=== PATIENT | male | born 1970 | race Caucasian/White ===

== ENCOUNTER 2019-06-01 23:18 | Emergency (ER) | payer SELFPAY ==
[2019-06-01 23:27] VITALS: BP 165/111; PULSE 116; RESP 17; TEMP 36.7; O2SAT 97; BMI 24.4
--- NOTE | 2019-06-02 00:46 | W.ED.MALEGU ---
HPI - Male Genitourinary General: Chief complaint: Urogenital-Male Stated complaint: can't urinate Time Seen by Provider: 06/02/19 00:46 History of Present Illness: HPI Narrative: Patient is a 48-year-old male who comes into the ED with decreased ability to urinate. Patient states that the symptoms have been going on for the past 6 months. He says they have just progressed and gotten worse. He sometimes feels like his bladder is full when he is able to urinate a little bit out at a time. Sometimes at night while he is asleep he urinates. He has had some episodes of visible blood in his urine but not within the past 2 weeks. He does not have any flank pain. Currently here in the ED does not have any bladder discomfort. Patient is also complaining of having a cough, nasal drainage and congestion, sore throat and fever and chills that started about 1 to 2 weeks ago. Associated symptoms: Reports hematuria (in the past but not in within the last 2 weeks) and urinary incontinence; Deny dysuria, nausea or vomiting Review of Systems Const: Reports: fever and chills; Denies: fatigue Eyes: Denies: change in vision or eye discomfort ENMT: Reports: throat pain, nasal discharge and nasal congestion; Denies: painful swallowing Card: Denies: chest pain, palpitations, edema, swelling of feet/ankles, shortness of breath on exertion or shortness of breath when lying down Resp: Reports: non-productive cough; Denies: shortness of breath or productive cough GI: Denies: abdominal pain, nausea, vomiting, diarrhea, constipation or blood in stool : Reports: difficulty urinating (urinates a little bit at a time), nighttime urination, decreased urine ouput, urinary incontinence and blood in urine (in the past but not in within the last 2 weeks); Denies: flank pain or painful urination Musc: Denies: neck pain, back pain or extremity swelling Skin/Breast: Denies: rash or new lesion Neuro: Denies: headache, numbness in extremities or weakness in extremities PFS ED PFSH: Social History Smoking and tobacco status: never smoked Physical Exam Const: COMMON NORMALS: oriented x3 HENMT: COMMON NORMALS: normocephalic HEAD & SCALP: normocephalic MOUTH: oral and palatal mucosa normal THROAT: posterior oropharynx normal and uvula midline Neck/C-Spine: COMMON NORMALS: supple GENERAL: Yes normal visual inspection Resp: COMMON NORMALS: normal respiratory effort, no retractions, no use of accessory muscles and clear to auscultation bilaterally AUSCULTATION: clear to auscultation bilaterally Cardio: COMMON NORMALS: regular rate, regular rhythm, S1 normal heart sound, S2 normal heart sound, no gallops, no clicks, no murmurs and peripheral pulses 2+ throughout RATE: regular rate RHYTHM: regular rhythm HEART SOUNDS: S1 normal and S2 normal PERIPHERAL PULSES: pulses 2+ throughout GI: COMMON NORMALS: normal to inspection, nondistended, normoactive bowel sounds, soft to palpation, non-tender and no masses PALPATION: Yes soft : COMMON NORMALS: Yes no CVA tenderness BLADDER/KIDNEY EXAM: Yes no CVA tenderness Back/Pelvis: COMMON NORMALS: no CVA tenderness Extremity: COMMON NORMALS: normal to inspection Neuro: COMMON NORMALS: oriented x3 and moves all extremities Skin: COMMON NORMALS: no rashes or lesions noted GENERAL SKIN EXAM: no rashes or lesions noted and dry skin Course ED course: Patient only had 35 cc in his bladder when we performed a bladder scan. Patient was able to urinate to give us a sample. After getting fluids and Zofran patient has not had any episodes of nausea or vomiting. I explained to the patient that I am putting in a urology referral. Urology office should be calling patient to set up an appointment to discuss the past 6 months of urological issues. Patient was also given azithromycin to help with his upper respiratory symptoms in particular the bronchitis. I also gave patient prescription of Zofran to take as needed for any nausea or vomiting. Patient agree with and understood plan. Vital Signs: Vital signs: Vital Signs Temperature 98.1 F 06/01/19 23:27 Pulse Rate 107 H 06/02/19 03:55 Respiratory Rate 18 06/02/19 03:55 Blood Pressure 132/77 06/02/19 03:55 Pulse Oximetry 99 06/02/19 03:55 MDM - Male Lab Data: Attestation: I reviewed the patient's lab results. Labs: Lab Results 06/02/19 06/02/19 06/02/19 Range/Units 01:15 01:15 02:15 WBC 9.4 (4.0-10.0) 10^3/ uL RBC 4.56 (4.1-5.3) 10^6/u L Hgb 15.0 (11.7-16.6) g/dL Hct 45.2 (42.0-52.0) % MCV 99.1 H (80-94) fL MCH 32.9 (28.0-34.0) pg MCHC 33.2 (30.0-36.0) g/dL RDW 12.7 (12.1-15.1) % Plt Count 159 (130-400) 10^3/c mm MPV 10.4 (7.4-10.4) fL Neut % (Auto) 66.1 % Lymph % (Auto) 24.4 % [place] % (Auto) 8.5 % Eos % (Auto) 0.4 % Baso % (Auto) 0.4 % Neut # (Auto) 6.2 (1.8-7.7) 10^3/u L Lymph # (Auto) 2.3 (0.8-4.8) 10^3/u L [place] # (Auto) 0.8 (0.2-0.9) 10^3/u L Eos # (Auto) 0.0 (0.0-0.8) 10^3/u L Baso # (Auto) 0.0 (0.0-0.1) 10^3/u L Nucleated RBC % (a uto) 0 % Nucleated RBCs # 0.0 /100WBC Sodium 139 (136-145) mmol/L Potassium 3.9 (3.5-5.1) mmol/L Chloride 96 L (98-107) mmol/L Carbon Dioxide 21 L (22-29) mmol/L Anion Gap 25.9 H (5-19) BUN 12 (6-20) mg/dL Creatinine 0.7 (0.7-1.2) mg/dL GFR Calculation 120.9 (90-130) mL/min Glucose 74 (65-115) mg/dL Calculated Osmolal ity 283 L (285-295) mOsm/k g Calcium 9.6 (8.5-10.5) mg/dL Total Bilirubin 0.6 (0.15-1.2) mg/dL AST 108 H (0-40) U/L ALT 53 H (0-41) U/L Alkaline Phosphata se 113 (40-130) IU/L Total Protein 7.9 (6.6-8.7) g/dL Albumin 4.8 (3.5-5.2) g/dL Globulin 3.1 (1.3-4.6) g/dL Urine Color (Yellow) Urine Appearance (CLEAR) Urine pH (5-7) Ur Specific Gravit y (1.005-1.030) Urine Protein (Negative) Urine Glucose (UA) (Normal) Urine Ketones (Negative) Urine Blood (Negative) Urine Nitrate (Negative) Urine Bilirubin (NEGATIVE) Urine Urobilinogen (Negative) mg/dL Ur Leukocyte Lillian ase (Negative) Urine RBC (0-2) /hpf Urine WBC (0-5) /hpf Ur Squamous Epith Cells (0-5) Urine Bacteria (NONE) Hyaline Casts Urine Mucus Influenza Type A A g Negative (Negative) POC Influenza B Ag Negative (Negative) Group A Strep Rapi d (Negative) 06/02/19 06/02/19 Range/Units 02:15 03:18 WBC (4.0-10.0) 10^3/ uL RBC (4.1-5.3) 10^6/u L Hgb (11.7-16.6) g/dL Hct (42.0-52.0) % MCV (80-94) fL MCH (28.0-34.0) pg MCHC (30.0-36.0) g/dL RDW (12.1-15.1) % Plt Count (130-400) 10^3/c mm MPV (7.4-10.4) fL Neut % (Auto) % Lymph % (Auto) % [place] % (Auto) % Eos % (Auto) % Baso % (Auto) % Neut # (Auto) (1.8-7.7) 10^3/u L Lymph # (Auto) (0.8-4.8) 10^3/u L [place] # (Auto) (0.2-0.9) 10^3/u L Eos # (Auto) (0.0-0.8) 10^3/u L Baso # (Auto) (0.0-0.1) 10^3/u L Nucleated RBC % (a uto) % Nucleated RBCs # /100WBC Sodium (136-145) mmol/L Potassium (3.5-5.1) mmol/L Chloride (98-107) mmol/L Carbon Dioxide (22-29) mmol/L Anion Gap (5-19) BUN (6-20) mg/dL Creatinine (0.7-1.2) mg/dL GFR Calculation (90-130) mL/min Glucose (65-115) mg/dL Calculated Osmolal ity (285-295) mOsm/k g Calcium (8.5-10.5) mg/dL Total Bilirubin (0.15-1.2) mg/dL AST (0-40) U/L ALT (0-41) U/L Alkaline Phosphata se (40-130) IU/L Total Protein (6.6-8.7) g/dL Albumin (3.5-5.2) g/dL Globulin (1.3-4.6) g/dL Urine Color Dark yellow (Yellow) Urine Appearance Hazy A (CLEAR) Urine pH 5 (5-7) Ur Specific Gravit y 1.025 (1.005-1.030) Urine Protein Trace (Negative) Urine Glucose (UA) Norm (Normal) Urine Ketones 3+ H (Negative) Urine Blood Neg (Negative) Urine Nitrate Negative (Negative) Urine Bilirubin Neg (NEGATIVE) Urine Urobilinogen 1 H (Negative) mg/dL Ur Leukocyte Lillian ase Negative (Negative) Urine RBC 0-4 H (0-2) /hpf Urine WBC None (0-5) /hpf Ur Squamous Epith Cells 0-4 H (0-5) Urine Bacteria Trace (NONE) Hyaline Casts 10-15 H Urine Mucus 4+ Influenza Type A A g (Negative) POC Influenza B Ag (Negative) Group A Strep Rapi d Negative (Negative) Imaging Data: CXR: Attestation: I personally reviewed and interpreted this imaging study as follows: My impression: Possible bronchitis. Pending final radiology report. Discharge Plan Discharge Patient Disposition: Home, Self-Care Clinical Impression: Bronchitis, Dehydration Nausea & vomiting Qualifiers: Vomiting type: unspecified Vomiting Intractability: non-intractable Qualified Code(s): R11.2 - Nausea with vomiting, unspecified Condition: Stable Prescriptions: New azithromycin 250 mg tablet See Rx Instructions .ROUTE .COMPLEX Qty: 6 RF: 0 Zofran 4 mg tablet 4 mg PO DAILY Qty: 10 RF: 0 No Action Blood Pressure Med RF: 0 Discharge Orders: Discharge Order (Routine); Ordered 06/02/19 Ordered By: Patricio Kaur Discharge Diet: Regular Discharge Activity: Resume usual activity Patient Instructions: Acute Bronchitis (ED), Chronic Bronchitis (ED) Activity Restrictions/Additional Instructions: I placed a referral to the urologist. Urology office should be contacting you in the next several days to set up an appointment. Drink plenty of fluids and stay hydrated. Take full course of antibiotic as prescribed. I am also sending you home some Zofran for you to take as needed for any nausea and vomiting. Also follow-up with your PCP in 7 days. Discharge Date/Time: 06/02/19 03:56 Coding Level of Care Code ED Hand Clerical Verifier for Tirso Fwjammie Exam Comprehensive
[2019-06-02 00:51] VITALS: BP 159/89; PULSE 110; RESP 24; O2SAT 99
[2019-06-02 01:21] LABS: Basophils % 0.4 %; Eosinophils % 0.4 %; Hematocrit 45.2 % (42.0-52.0); Lymphocytes # 2.3 10^3/uL (0.8-4.8); Lymphocytes % 24.4 %; Mean Corpuscular HGB Conc 33.2 g/dL (30.0-36.0); Mean Corpuscular Hemoglobin 32.9 pg (28.0-34.0); Mean Corpuscular Volume 99.1 fL (80-94); Mean Platelet Volume 10.4 fL (7.4-10.4); Monocytes # 0.8 10^3/uL (0.2-0.9); Monocytes % 8.5 %; Neutrophils # 6.2 10^3/uL (1.8-7.7); Neutrophils % 66.1 %; Nucleated Red Blood Cells % 0 %; Platelet Count 159 10^3/cmm (130-400); Red Blood Count 4.56 10^6/uL (4.1-5.3); Red Cell Distribution Width 12.7 % (12.1-15.1); White Blood Count 9.4 10^3/uL (4.0-10.0)
[2019-06-02] MEDS: sodium chloride 0.9% 1,000 ML 999 ML IV ×2 (01:31→03:14)
[2019-06-02] MEDS: ondansetron 2 mg/ML SDV 2 mL 4 MG IVP (01:32)
[2019-06-02 01:34] LABS: Alanine Aminotransferase 53 U/L (0-41); Albumin Level 4.8 g/dL (3.5-5.2); Alkaline Phosphatase 113 IU/L (40-130); Anion Gap 25.9 (5-19); Aspartate Amino Transferase 108 U/L (0-40); Blood Urea Nitrogen 12 mg/dL (6-20); Calcium 9.6 mg/dL (8.5-10.5); Carbon Dioxide 21 mmol/L (22-29); Chloride 96 mmol/L (98-107); Globulin 3.1 g/dL (1.3-4.6); Glomerular Filtration Rate 120.9 mL/min (90-130); Glucose 74 mg/dL (65-115); Osmolality Calculated 283 mOsm/kg (285-295); Potassium 3.9 mmol/L (3.5-5.1); Sodium 139 mmol/L (136-145); Total Bilirubin 0.6 mg/dL (0.15-1.2); Total Protein 7.9 g/dL (6.6-8.7)
--- NOTE | 2019-06-02 02:02 | XR_ITS ---
WS: [id number] Portable AP upright chest, 06/02/2019 Clinical Data: cough and fevers Comparison: None. Findings: No nodules, masses or effusions are seen. The heart is normal. The pulmonary vascularity is not increased. No pneumonia or pneumothorax is seen. XR/XR chest 1V portable [id number] Impression: Negative chest.
[2019-06-02 02:18] VITALS: BP 149/99; PULSE 88; RESP 18; O2SAT 96
[2019-06-02 02:26] LABS: Bilirubin Urine Neg (NEGATIVE); Blood Urine Neg (Negative); Glucose Urine UA Norm (Normal); Ketones Urine 3+ (Negative); Leukocyte Esterase Urine Negative (Negative); Nitrate Urine Negative (Negative); Protein Urine Trace (Negative); Specific Gravity, Urine 1.025 (1.005-1.030); Urine Appearance Hazy (CLEAR); Urine Color Dark Yellow (Yellow); Urobilinogen Urine 1 mg/dL (Negative); pH Urine 5 (5-7)
[2019-06-02 02:37] LABS: RBC Urine 0-4 /hpf (0-2)
[2019-06-02 02:38] LABS: Add Urine Culture? No; Bacteria Urine TRACE; Mucus Urine 4+; Squamous Epithelial Cell Urine 0-4 (0-5)
[2019-06-02 02:41] LABS: Influenza A by IFA Negative (Negative); Influenza B by IFA Negative (Negative)
[2019-06-02 03:54] LABS: Rapid Strep A Test Negative (Negative)
[2019-06-02 03:55] VITALS: BP 132/77; PULSE 107; RESP 18; O2SAT 99
--- NOTE | 2019-06-02 11:38 | DCPLANNER ---
manager solution had message to schedule a follow up appointment for patient with Dr. Zarate. manager solution called the office of Dr. Zarate, spoke with Allie. manager solution gave clinic patients information. manager solution was told that patients information would be printed and given to Kellen for review. Clinic will call patient with appointment information, case management rn will call for appointment information.
--- NOTE | 2019-06-03 13:31 | DCPLANNER ---
Patient has a follow up appointment scheduled for Sunday, July 28, [address] at 3:[address] Zarate. Clinic will call patient with appointment information.
== END 2019-06-02 03:56 | disposition home or self-care (01) ==
PROVIDERS: Emergency Provider Physician Assistant
DX: J40 Bronchitis, not specified as acute or chronic (principal); E86.0 Dehydration; R11.2 Nausea with vomiting, unspecified
CPT/HCPCS: 12345; 36415; 51798; 71045; 80053; 81001; 85025; 87040; 87081; 87804; 87880; 96361; 96374; 96375; 99283; 99284; J2405; J7030

== ENCOUNTER → 2019-07-28 14:20 | Outpatient (BNVA) | payer SELFPAY | PROVIDERS: Visit Provider Urology | DX: N39.44 Nocturnal enuresis (principal); R39.11 Hesitancy of micturition; N52.1 Erectile dysfunction due to diseases classified elsewhere | CPT/HCPCS: 81001 ==

== ENCOUNTER 2019-08-07 16:20 | Emergency (ER) | payer SELFPAY ==
[2019-08-07 16:33] VITALS: BP 172/82; PULSE 107; RESP 16; TEMP 36.7; O2SAT 98; BMI 23.4
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
--- NOTE | 2019-08-07 17:45 | W.ED.EXTPRO ---
HPI - Extremity Problem General: Chief complaint: Extremity Injury, Upper Stated complaint: fingers injured Time Seen by Provider: 08/07/19 17:43 History of Present Illness: HPI Narrative: Patient is a 48-year-old male who comes into the ED with right and left hand pain. Patient states that about a week ago he was using a 5 pound hammer and hit his left index finger. Ever since the injury he says pain is left index finger and has limited mobility. Patient rates pain an 8 out of 10. Patient also has mallet finter of the right 3rd digit. Mallet finger occurred when he was rubbing his right middle finger on wall while painting 2 days ago. Associated symptoms: Deny chest pain, fever(s) or rash Review of Systems Const: Denies: fever(s), chills or fatigue Eyes: Denies: change in vision or eye discomfort ENMT: Denies: throat pain, odynophagia, nasal discharge or nasal congestion Card: Denies: chest pain, palpitations, edema, swelling of feet/ankles, dyspnea on exertion or orthopnea Resp: Denies: dyspnea, productive cough or non-productive cough GI: Denies: abdominal pain, nausea, vomiting, diarrhea, constipation or hematochezia : Denies: flank pain, difficulty urinating, dysuria or hematuria Musc: Reports: extremity pain (Right and left hand); Denies: neck pain or back pain Skin/Breast: Denies: rash or new lesions Neuro: Denies: headache(s), numbness in extremities or weakness in extremities PFS ED PFSH: Medical History Erectile dysfunction Hesitancy Family History Mother , IN HER 70'S Heart attack Diabetes Father Diabetes Heart disease Social History Smoking and tobacco status: current every day smoker Alcohol intake: current Alcohol intake frequency: 3 or more drinks per day Marital status: Current occupational status: employed 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 History of recent travel: No Physical Exam Const: COMMON NORMALS: no acute distress, patient oriented x3 and alert GENERAL APPEARANCE: cooperative and comfortable HENMT: COMMON NORMALS: normocephalic HEAD & SCALP: normocephalic MOUTH: Normal oral and palatal mucosa present THROAT: posterior oropharynx normal and uvula midline Eye: COMMON NORMALS: Equal, round and reactive pupils present PUPIL: Yes Equal, round and reactive pupils present Neck/C-Spine: COMMON NORMALS: supple GENERAL: Yes normal visual inspection Resp: COMMON NORMALS: normal respiratory effort, No retractions, No use of accessory muscles and clear to auscultation bilaterally AUSCULTATION: clear to auscultation bilaterally Cardio: COMMON NORMALS: regular rate, regular rhythm, S1 normal heart sound present, S2 normal heart sound present, No gallops present (Cardio), No clicks present (Cardio), No murmurs present (Cardio) and Peripheral pulses 2+ throughout RATE: regular rate RHYTHM: regular rhythm HEART SOUNDS: S1 normal heart sound present and S2 normal heart sound present PERIPHERAL PULSES: Peripheral pulses 2+ throughout GI: COMMON NORMALS: Normal to inspection, nondistended, normoactive bowel sounds present, Soft to palpation, non-tender and no masses PALPATION: Yes Soft to palpation : COMMON NORMALS: Yes no CVA tenderness BLADDER/KIDNEY EXAM: Yes no CVA tenderness Back/Pelvis: COMMON NORMALS: no CVA tenderness Extremity: RIGHT UPPER EXTREMITY: Yes hand & digits Right hand and digits: Yes inspection (Mallet finger of right middle finger.) LEFT UPPER EXTREMITY: Yes hand & digits Left hand and digits: Yes inspection (Swelling of hip joint of index finger.), Yes palpation (DIP joint tender upon palpation), Yes ROM (limited due to pain) and Yes neurovascular exam (intact) Neuro: COMMON NORMALS: patient oriented x3 and moves all extremities SENSORIUM/ORIENTATION: Yes alert Skin: COMMON NORMALS: no rashes or lesions noted GENERAL SKIN EXAM: no rashes or lesions noted and dry skin Course Vital Signs: Vital signs: Vital Signs Temperature 98.0 F 08/07/19 16:33 Pulse Rate 72 08/07/19 19:48 Respiratory Rate 16 08/07/19 19:48 Blood Pressure 151/96 08/07/19 19:48 Pulse Oximetry 98 08/07/19 19:48 MDM - Extremity (Nontraumatic) MDM Narrative: Medical decision making narrative: Patient is a 48-year-old male who comes to the ED with right middle mallet finger and left index finger pain due to injury. Physical exam showed right middle finger with mallet deformity. Left index finger and some joint swelling at the DIP joint along with tenderness. Right hand x-ray showed no acute fractures. Left hand x-ray showed a possible closed nondisplaced fracture of the distal head of the proximal phalange second digit. Patient's right middle finger was put in splint and patient's left index finger was placed in a splint. An order was placed with case management for patient to get an Ortho referral. Patient was given a written prescription for hydrocodone to help with pain. He was told to follow-up with Ortho at the scheduled appointment when they call him next week. He was instructed to keep finger splints on and to limit use of injured fingers. Patient understood and agreed with plan. Imaging Data^: Xray Ortho: Attestation: I personally reviewed and interpreted this imaging study as follows: My impression: Left hand [id number] closed nondisplaced fracture of the distal head of the proximal phalange of left hand 2nd digit. Right hand x-ray- show no acute fractures. Discharge Plan Discharge Patient Disposition: Home, Self-Care Clinical Impression: Mallet deformity of right middle finger Fracture of proximal phalanx of digit of left hand Qualifiers: Encounter type: initial encounter Fracture type: closed Qualified Code(s): S62.619A - Displaced fracture of proximal phalanx of unspecified finger, initial encounter for closed fracture Condition: Stable Prescriptions: No Action sildenafil 50 mg tablet 50 mg PO DAILY PRNRF: 0 Discharge Orders: Discharge Order (Routine); Ordered 08/07/19 Ordered By: Patricio Kaur Discharge Diet: Regular Discharge Activity: Increase activity as tolerated Patient Instructions: Fractures - Phalanx (Finger), Mallet Finger Activity Restrictions/Additional Instructions: [facility] [place] orthopedics should be contacting you sometime next week to set up an appointment. Keep finger splints on to help with pain and healing. Take ibuprofen or Tylenol for pain and inflammation. I am sending you home with a written prescription for couple hydrocodone to help with any breakout pain. Discharge Date/Time: 08/07/19 19:54 Coding Level of Care Code ED Certified Medical Aide for Tirso Fwd Exam Comprehensive
[2019-08-07] MEDS: HYDROcodone-acetaminophen 7.5-325 mg Tablet 1 TAB PO ×2 (18:57→19:47)
[2019-08-07 18:59] VITALS: BP 143/91; PULSE 60; RESP 17; O2SAT 95
[2019-08-07 19:48] VITALS: BP 151/96; PULSE 72; RESP 16; O2SAT 98
--- NOTE | 2019-08-10 11:08 | DCPLANNER ---
manager hotel had message to schedule a follow up appointment for patient with ortho. manager hotel called the ortho clinic, spoke with Pat, gave clinic patients information. manager hotel was told that patients information would be printed and reviewed. Clinic will call rn case mgr and patient with appointment information.
--- NOTE | 2019-08-11 15:24 | DCPLANNER ---
Patient did attend appointment scheduled for 07.28.19 with Tessa.
--- NOTE | 2019-08-12 13:00 | DCPLANNER ---
Patient had a follow up appointment scheduled for 08.10.19 with ortho. Patient did attend the appointment.
== END 2019-08-07 19:54 | disposition home or self-care (01) ==
PROVIDERS: Emergency Provider Physician Assistant
DX: M20.011 Mallet finger of right finger(s) (principal); S62.641A Nondisplaced fracture of proximal phalanx of left index finger, initial encounter for closed fracture; W22.8XXA Striking against or struck by other objects, initial encounter; F17.210 Nicotine dependence, cigarettes, uncomplicated
CPT/HCPCS: 12345; 73130; 99281; 99283

== ENCOUNTER → 2019-08-10 13:54 | Outpatient (BNVA) | payer SELFPAY | PROVIDERS: Referring Provider Physician Assistant; Visit Provider Specialist | DX: M19.042 Primary osteoarthritis, left hand (principal); M79.644 Pain in right finger(s) | CPT/HCPCS: 73130 ==

== ENCOUNTER 2019-09-14 12:20 | Emergency (ER) | payer SELFPAY ==
[2019-09-14 12:24] VITALS: BP 155/100; PULSE 96; RESP 18; TEMP 36.5; O2SAT 97; BMI 24.4
--- NOTE | 2019-09-14 12:43 | W.ED.EYEPROB ---
HPI - Eye Problem General: Chief complaint: Eye Problems Stated complaint: left eye Time Seen by Provider: 09/14/19 12:43 Source: patient Mode of arrival: ambulatory Limitations: no limitations History of Present Illness: HPI Narrative: Patient comes in today for complaints of left eye discomfort. Patient reports discomfort for the last 2 to 3 months. Patient now reports that his head feels like he has sand in the eye. Patient appears well. Patient appears in no acute distress. 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 Eye was stained with fluorescein and evaluated noting a corneal abrasion to the area of the stye. Neck/C-Spine: COMMON NORMALS: full ROM Lymph: LYMPHATIC: no lymphadenopathy noted Chest: COMMONS NORMALS: normal inspection of the chest Resp: COMMON NORMALS: normal respiratory effort EFFORT & INSPECTION: Yes able to speak in complete sentences Cardio: COMMON NORMALS: regular rate and regular rhythm RATE: regular rate RHYTHM: regular rhythm GI: COMMON NORMALS: non-tender : COMMON NORMALS: Yes no CVA tenderness BLADDER/KIDNEY EXAM: Yes no CVA tenderness Back/Pelvis: COMMON NORMALS: no CVA tenderness and thoracic and lumbar spine normal to inspection Extremity: COMMON NORMALS: normal to inspection Neuro: COMMON NORMALS: patient oriented x3 and moves all extremities Psych: COMMON NORMALS: mental status grossly normal and cooperative Skin: COMMON NORMALS: no rashes or lesions noted GENERAL SKIN EXAM: no rashes or lesions noted Course Vital Signs: Vital signs: Vital Signs Temperature 97.7 F 09/14/19 12:24 Pulse Rate 96 09/14/19 12:24 Respiratory Rate 18 09/14/19 12:24 Blood Pressure 155/100 09/14/19 12:24 Pulse Oximetry 97 09/14/19 12:24 MDM - Eye Problem MDM Narrative: Medical decision making narrative: Patient came in today for complaints of discomfort and possible foreign body. On exam patient appears well. Patient appears in no acute distress. Patient does have a stye noted to the lateral upper and lower lid of the left eye. Differential diagnosis includes stye, abrasion, foreign body. No foreign body was noted. Reviewed exam with patient recommended warm compresses and massage to the eyelid. We will also place the patient on antibiotic drops with steroid to aid with healing. Patient reports understanding and agreed to plan. Discharge Plan Discharge Patient Disposition: Home, Self-Care Clinical Impression: External hordeolum Qualifiers: Laterality: left Eyelid: unspecified eyelid Qualified Code(s): H00.016 - Hordeolum externum left eye, unspecified eyelid Corneal abrasion Qualifiers: Encounter type: initial encounter Laterality: left Qualified Code(s): S05.02XA - Injury of conjunctiva and corneal abrasion without foreign body, left eye, initial encounter Condition: Stable Prescriptions: No Action sildenafil 50 mg tablet 50 mg PO DAILY PRNRF: 0 Discharge Orders: Discharge Order (Routine); Ordered 09/14/19 Ordered By: Suhail Berry Discharge Diet: Usual diet Discharge Activity: Increase activity as tolerated Patient Instructions: Tan (ED) Activity Restrictions/Additional Instructions: Use warm moist compresses to the eye and gently massage the eyelid 2-3 times a day. Use antibiotic eyedrops 1 drop to the affected eye 4 times a day for the next 7 days. Follow-up with primary care in 3 days for recheck. Return to the ER for worsening symptoms or new concerns. Coding Level of Care Code ED Medical Review Specialist for Tirso Fwjammie Exam Comprehensive
[2019-09-14] MEDS: fluorescein 1 mg Strip EYE-LEFT (13:34)
[2019-09-14] MEDS: tetracaine 0.5% Op Soln 4 mL Btl 1 DROP EYE-LEFT (13:36)
[2019-09-14] MEDS: tobramycin-dexametha Op Susp 5 mL Btl 2 DROP EYE-LEFT (13:37)
[2019-09-14 14:18] VITALS: BP 142/65; PULSE 75; RESP 17; O2SAT 98
== END 2019-09-14 14:21 | disposition home or self-care (01) ==
PROVIDERS: Emergency Provider Nurse Practitioner Family
DX: H00.015 Hordeolum externum left lower eyelid (principal); H00.014 Hordeolum externum left upper eyelid; S05.02XA Injury of conjunctiva and corneal abrasion without foreign body, left eye, initial encounter; X58.XXXA Exposure to other specified factors, initial encounter; F17.210 Nicotine dependence, cigarettes, uncomplicated
CPT/HCPCS: 12345; 99281; 99283

== ENCOUNTER 2021-05-15 15:35 | Emergency (ER) | payer MEDICAID, SELFPAY ==
[2021-05-15 15:54] VITALS: BP 162/99; PULSE 100; RESP 18; TEMP 36.8; O2SAT 97; BMI 22.3
[2021-05-15 16:03] VITALS: BP 162/99; PULSE 100; RESP 18; TEMP 36.8; O2SAT 97
--- NOTE | 2021-05-15 16:26 | ED_ITS ---
HPI - Eye Problem General: Chief complaint: Eye Problems Stated complaint: eye pain/injury Time Seen by Provider: 05/15/21 16:02 Source: patient and family Mode of arrival: ambulatory Limitations: no limitations History of Present Illness: Patient is a 50-year-old male who presents to ED today along with his significant other for concerns of a left eye injury. Patient tells me approximately 6 days ago he fell getting out of his pickup truck and states a stick stuck him in his left eye. He states since that time he has been having what he describes as triple vision from the left eye. He is not having any visual loss. No discharge from the eye. He has noticed the eye is red. He has some minor discomfort. No foreign body sensation chief complaint: eye pain, eye redness, eye injury and vision change Onset (ago): day(s) Onset description: sudden Duration: constant Location: left eye Place: home Mechanism: direct trauma Severity: mild Associated symptoms: Reports no associated symptoms Treatments Prior to Arrival: OTC eye drops Related Data: Patient tetanus UTD: No Review of Systems Eyes: Reports: change in vision, blurry vision, eye discomfort and eye redness; Denies: blind spots, eye discharge, yellow eyes, increased production of tears, floaters or seeing flashes PFSH ED PFSH: Medical History Erectile dysfunction H/O fracture of femur Hesitancy Surgical History H/O inguinal hernia repair LEFT Family History Mother , IN HER 70'S Heart attack Diabetes Father Diabetes Heart disease Social History Smoking and tobacco status: current every day smoker Alcohol intake: current Alcohol intake frequency: 3 or more drinks per day Marital status: Current occupational status: employed 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 History of recent travel: No Physical Exam Const: COMMON NORMALS: no acute distress, patient oriented x3, no limitations and alert GENERAL APPEARANCE: cooperative and odor of alcohol detected ORIENTATION/CONSCIOUSNESS: Yes awake, Yes oriented to person, Yes oriented to place and Yes oriented to time Eye: COMMON NORMALS: Equal, round and reactive pupils present and EOMs intact bilaterally GENERAL EYE: normal light reflex VISUAL CHICAS: No peripheral vision loss and No central vision loss ALIGNMENT: Yes alignment normal PERIORBITAL: periorbital findings normal EYELID: eyelids normal CONJUNCTIVA: Yes conjunctival abnormal positive left subconjunctival hemorrhage CORNEA: Yes corneas normal and fluorescein used PUPIL: Yes Equal, round and reactive pupils present DIRECT OPHTHALMOSCOPY: Yes normal light reflex Neuro: COMMON NORMALS: patient oriented x3 SENSORIUM/ORIENTATION: Yes alert, Yes oriented to person, Yes oriented to place and Yes oriented to time Course Vital Signs: Vital signs: Vital Signs Temperature 98.2 F 05/15/21 16:03 Pulse Rate 100 05/15/21 16:03 Respiratory Rate 18 05/15/21 16:03 Blood Pressure 162/99 05/15/21 16:03 Pulse Oximetry 97 05/15/21 16:03 MDM - Eye Problem Medical Decision Making Patient's pupil is symmetrical, round, and reactive to light. Cornea appears normal. I do not visualize any hyphema. He does have a mild to moderate subconjunctival hemorrhage. I do not visualize any conjunctival or scleral lacerations. Negative Karrie's sign during fluorescein stain. I don't visualize any abrasions of fbs. Once tetracaine was installed and he was able to better open his eye he did state vision improved but still complaints of diplopia. Again, no vision loss. Perception to light is normal. At this time I will have him follow up with ophthalmology this week for further evaluation. Will place on erythromycin ointment. Tetanus updated. Discharge Plan Discharge Patient Disposition: Home Clinical Impression: Left eye injury, Traumatic subconjunctival hemorrhage of left eye Condition: Stable Prescriptions: New erythromycin 5 mg/gram (0.5 %) ointment 1 applic ophthalmic (eye) Q4H 7 Days Qty: 1 0RF No Action cephalexin 500 mg capsule 500 mg PO BID 7 Days Qty: 14 0RF Discharge Orders: Discharge ED (Routine); Ordered 05/15/21 Ordered By: Natacha Burns Referrals: Kalia Antunez MD [Physician] - Patient Instructions: Subconjunctival Hemorrhage (ED) Activity Restrictions/Additional Instructions: As we discussed case management should contact you tomorrow to set you up with your follow-up appointment with Dr. Antunez or Cesar Linda PA-C for further evaluation of your eye injury. You need to return to the emergency department immediately for any loss of vision, severe eye pain, foreign body sensation, or any other concerns you may have. Tetanus has been updated today. Hope you begin to feel better soon. 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
[2021-05-15] MEDS: fluorescein 1 mg Strip EYE-LEFT (16:42)
[2021-05-15] MEDS: eye irrigation 30 mL Btl EYE-LEFT (16:43)
[2021-05-15] MEDS: tetracaine 0.5% Op Soln 4 mL Btl 1 DROP EYE-LEFT (16:46)
[2021-05-15] MEDS: tetanus-diphtheria tox (adult) 0.5 mL SDV IM (16:57)
[2021-05-15] MEDS: erythromycin Op Oint 1 gm 1 APPLIC EYE-LEFT (17:04)
--- NOTE | 2021-05-16 09:56 | DCPLANNER ---
Addendum entered by Briseyda Woodson 05/25/21 15:14: Patient had a follow up appointment for patient with Dr. Antunez, cyanide case hardener called clinic to confirm that a follow up appointment was scheduled for patient. clinical care manager was told that patient did not attend appointment. Original Note: clinical care manager had message to schedule a follow up appointment for patient with Dr. Antunez. clinical care manager faxed patients information to the office of Dr. Antunez. Patients information will be reviewed. Clinic will call patient with appointment information.
== END 2021-05-15 17:08 | disposition home or self-care (01) ==
LOC: ER 17:02
PROVIDERS: Emergency Provider Physician Assistant
DX: S05.02XA Injury of conjunctiva and corneal abrasion without foreign body, left eye, initial encounter (principal); F17.210 Nicotine dependence, cigarettes, uncomplicated; W17.89XA Other fall from one level to another, initial encounter; Z23 Encounter for immunization
CPT/HCPCS: 90471; 90714; 99282

== ENCOUNTER 2021-05-22 11:04 | Outpatient (CLI) | payer OTHER, SELFPAY ==
--- NOTE | 2021-05-22 11:33 | XRR_ITS ---
PROCEDURE INFORMATION: Exam: XR Left Shoulder Exam date and time: 05/22/2021 11:33 AM Age: 50 years old Clinical indication: Pain; Shoulder; Bilateral; Additional info: Bilateral shoulder pain TECHNIQUE: Imaging protocol: XR Left shoulder. Views: 2 or more views. COMPARISON: CR XR chest 1V portable [id number] 06/02/2019 2:33 AM FINDINGS: Bones/joints: Mild acromioclavicular joint osteoarthritis. Soft tissues: Normal. XR/XR shoulder LT min 2V* [id number] IMPRESSION: Mild acromioclavicular joint osteoarthritis.
--- NOTE | 2021-05-22 11:33 | XRR_ITS ---
PROCEDURE INFORMATION: Exam: XR Right Knee Exam date and time: 05/22/2021 11:33 AM Age: 50 years old Clinical indication: Bilateral; Prior surgery; Surgery type: RT knee; Patient HX: /o pain worst in left shoulder ; C/O pain bilat knee. Notices a small pea size lump RT medial thigh above knee cap. ; Additional info: Bilateral knee pain TECHNIQUE: Imaging protocol: XR Right knee. Views: 1 or 2 views. COMPARISON: No relevant prior studies available. FINDINGS: Bones/joints: Normal. Soft tissues: Normal. XR/XR knee RT 1-2V [id number] IMPRESSION: No acute findings or mass lesion seen..
--- NOTE | 2021-05-22 11:33 | XRR_ITS ---
PROCEDURE INFORMATION: Exam: XR Right Shoulder Exam date and time: 05/22/2021 11:33 AM Age: 50 years old Clinical indication: Pain; Bilateral; Prior surgery; Surgery type: RT shoulder; Additional info: Bilateral shoulder pain TECHNIQUE: Imaging protocol: XR Right shoulder. Views: 2 or more views. COMPARISON: CR XR chest 1V portable [id number] 06/02/2019 2:33 AM FINDINGS: Bones/joints: Normal. Soft tissues: Normal. XR/XR shoulder RT min 2V* [id number] IMPRESSION: No acute findings.
--- NOTE | 2021-05-22 11:33 | XRR_ITS ---
PROCEDURE INFORMATION: Exam: XR Left Knee Exam date and time: 05/22/2021 11:33 AM Age: 50 years old Clinical indication: Pain; Knee; Bilateral; Additional info: Bilateral knee pain TECHNIQUE: Imaging protocol: XR Left knee. Views: 1 or 2 views. COMPARISON: No relevant prior studies available. FINDINGS: Bones/joints: Normal. Soft tissues: Normal. XR/XR knee LT 1-2V [id number] IMPRESSION: No acute findings.
== END 2021-05-22 11:05 | disposition home or self-care (01) ==
LOC: RAD 11:15
PROVIDERS: Visit Provider Family Medicine
DX: Z02.71 Encounter for disability determination (principal); M25.511 Pain in right shoulder; M19.012 Primary osteoarthritis, left shoulder; M25.562 Pain in left knee; M25.561 Pain in right knee
CPT/HCPCS: 73030; 73560

== ENCOUNTER → 2021-06-19 10:36 | Outpatient (BNVA) | payer SELFPAY | PROVIDERS: Visit Provider Nurse Practitioner Family | DX: R39.11 Hesitancy of micturition (principal); R39.9 Unspecified symptoms and signs involving the genitourinary system; N52.9 Male erectile dysfunction, unspecified | CPT/HCPCS: 81003 ==

== ENCOUNTER 2021-08-03 17:56 | Emergency (ER) | payer MEDICAID, SELFPAY ==
[2021-08-03 18:40] VITALS: BP 103/74; PULSE 120; RESP 18; TEMP 36.8; O2SAT 96; BMI 22.3
--- NOTE | 2021-08-03 19:09 | W.ED.BACK ---
HPI - Back Pain/Injury General: Chief Complaint: Back Pain/Injury Stated Complaint: Hit in the ribs Time Seen by Provider: 08/03/21 19:09 History of Present Illness: 50-year-old male patient comes in today with injury to the right anterior ribs. Patient reports that he was using a table saw yesterday and a board kicked back striking him in the anterior right rib area. Patient denies taking any routine medications. Patient appears nontoxic. Patient appears in moderate pain. Review of Systems General: Reports: 10 or more systems reviewed and unremarkable except in HPI and below Card: Denies: chest pain Resp: Denies: dyspnea Musc: Reports: other (Right anterior rib pain) Skin/Breast: Denies: erythema PFSH ED PFSH: Medical History Erectile dysfunction H/O fracture of femur Hesitancy Lower urinary tract symptoms (LUTS) Surgical History H/O inguinal hernia repair LEFT Family History Mother , IN HER 70'S Heart attack Diabetes Father , at age 83 Diabetes Heart disease COVID-19 Social History Smoking and tobacco status: current every day smoker Alcohol intake: current Alcohol intake frequency: 3 or more drinks per day Marital status: Current occupational status: employed 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 History of recent travel: No Physical Exam Const: COMMON NORMALS: alert HENMT: COMMON NORMALS: atraumatic HEAD & SCALP: atraumatic Neck/C-Spine: COMMON NORMALS: full ROM Chest: CHEST: Yes tenderness rib (Right lower anterior) Resp: COMMON NORMALS: normal respiratory effort and clear to auscultation bilaterally AUSCULTATION: clear to auscultation bilaterally Cardio: COMMON NORMALS: regular rate RATE: regular rate Back/Pelvis: THORACIC SPINE/UPPER BACK: Yes paraspinal muscle tenderness Extremity: COMMON NORMALS: normal to inspection Neuro: SENSORIUM/ORIENTATION: Yes alert Skin: TRAUMA: no lacerations or abrasions WOUNDS: No wounds noted Course Vital Signs: Vital signs: Vital Signs Temperature 98.3 F 08/03/21 18:40 Pulse Rate 120 H 08/03/21 18:40 Respiratory Rate 18 08/03/21 18:40 Blood Pressure 103/74 08/03/21 18:40 Pulse Oximetry 96 08/03/21 18:40 MDM - Back Pain/Injury Medical Decision Making 50-year-old male comes in for injury to the right anterior ribs. Patient reports hitting his ribs against the door that Kicked back from a table saw. On exam no palpable deformity is noted in the ribs. Patient is very tender to palpation low. No obvious abrasion or injury is noted. Differential diagnosis includes contusion, fracture, abrasion. X-rays noted no fracture or abnormality of the ribs. Reviewed exam with patient with recommendations for treatment for pain. Encouraged ice heat, Tylenol and ibuprofen, and hydrocodone for severe pain. Patient reported understanding and agreed to plan. Discharge Plan Discharge Patient Disposition: Home Clinical Impression: Contusion Qualifiers: Encounter type: initial encounter Contusion area: thoracic wall Front or back of thoracic wall: front Thoracic wall location detail: right Qualified Code(s): S20.211A - Contusion of right front wall of thorax, initial encounter Condition: Stable Prescriptions: New hydrocodone-acetaminophen 5-325 mg tablet 1 tab PO Q8H PRN (Reason: pain (scale score 7-10)) Qty: 6 0RF No Action hydroxyzine HCl 25 mg tablet 25 mg PO .every 6 hours PRN0RF escitalopram oxalate [Lexapro] 10 mg tablet 10 mg PO DAILY 0RF tamsulosin 0.4 mg capsule 0.4 mg PO .at bedtime Qty: 30 12RF sildenafil 100 mg tablet 100 mg PO DAILY PRN (Reason: sexual activity) Qty: 20 6RF Rx Instructions: Take 1 hour before intercourse, on empty stomach, max dose 100 mg, NO NITROGLYCERIN cephalexin 500 mg capsule 500 mg PO BID 7 Days Qty: 14 0RF Discharge Orders: Discharge ED (Routine); Ordered 08/03/21 Ordered By: Suhail Berry Discharge Diet: Usual diet Discharge Activity: Increase activity as tolerated Patient Instructions: Contusion in Adults (ED), Opioid Safety Activity Restrictions/Additional Instructions: Activity as tolerated. Use acetaminophen and ibuprofen for pain. Use hydrocodone for severe pain. Use ice or heat for further pain relief. Follow-up with primary care for further instruction. Return to ER for new concerns. 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
--- NOTE | 2021-08-03 19:15 | XRR_ITS ---
PROCEDURE INFORMATION: Exam: XR Right Ribs with PA Chest Exam date and time: 08/03/2021 7:25 PM Age: 50 years old Clinical indication: Other: RT. Anterior mid rib pain; Additional info: Injury TECHNIQUE: Imaging protocol: XR Right ribs with PA chest. Views: 3 views COMPARISON: CR XR chest 1V portable [id number] 06/02/2019 2:33 AM FINDINGS: Lungs: Unremarkable. No consolidation. Pleural spaces: Unremarkable. No pleural effusion. No pneumothorax. Heart/Mediastinum: Unremarkable. No cardiomegaly. Bones/joints: Unremarkable. XR/XR ribs RT mn 3V w CXR1V [id number] IMPRESSION: No acute findings.
[2021-08-03] MEDS: HYDROcodone-acetaminophen 5-325 mg Tablet 1 TAB PO (19:23)
== END 2021-08-03 19:45 | disposition home or self-care (01) ==
PROVIDERS: Emergency Provider Nurse Practitioner Family
DX: S20.211A Contusion of right front wall of thorax, initial encounter (principal); W20.8XXA Other cause of strike by thrown, projected or falling object, initial encounter; Y93.89 Activity, other specified
CPT/HCPCS: 71101; 99283

== ENCOUNTER 2021-08-23 17:47 | Inpatient (IN) | payer MEDICAID, SELFPAY ==
[2021-08-23 17:59] VITALS: BP 140/95; PULSE 116; RESP 16; TEMP 36.7; O2SAT 95
[2021-08-23 20:12] VITALS: BP 163/101; PULSE 105; RESP 17; O2SAT 95
[2021-08-23] MEDS: LORazepam 2 mg/mL INJ 1 mL IM (20:20)
--- NOTE | 2021-08-23 20:26 | W.ED.PSYCHS ---
HPI - Psych General: Chief Complaint: Psychiatric Symptoms Stated Complaint: tick bites/nausea/vomiting Time Seen by Provider: 08/23/21 20:00 Source: patient Mode of arrival: ambulatory Limitations: no limitations History of Present Illness: 50-year-old male who recently came in stating he had body aches along with nausea and vomiting had multiple tick bites I spoke to him he states that he had had tick bites but he felt okay he had no fever he states that he had actually came up but did not tell that triage nurse that he came because he is having suicidal thoughts. He states he been under a lot of stress a lot of life stressors and has been having thoughts of just ending it all. States he has never been admitted but states he feels like he needs help as he feels like he may kill himself. Associated symptoms: Reports depression and suicidal ideation Review of Systems Const: Denies: fever(s), chills, body aches or change in appetite Eyes: Denies: blurry vision or eye discomfort ENMT: Denies: throat pain or dental pain Card: Denies: chest pain Resp: Denies: dyspnea GI: Reports: nausea and vomiting : Denies: dysuria Musc: Denies: neck pain or back pain Skin/Breast: Denies: rash Neuro: Denies: headache(s) Psych: Reports: depression and suicidal ideation Larry/Lymph: Denies: easy bruising All/Imm: Denies: urticaria PFSH ED PFSH: Medical History Erectile dysfunction H/O fracture of femur Hesitancy Lower urinary tract symptoms (LUTS) Surgical History H/O inguinal hernia repair LEFT Family History Mother , IN HER 70'S Heart attack Diabetes Father , at age 83 Diabetes Heart disease COVID-19 Social History Smoking and tobacco status: current every day smoker Alcohol intake: current Alcohol intake frequency: 3 or more drinks per day Marital status: Current occupational status: employed 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 History of recent travel: No Physical Exam Const: COMMON NORMALS: no acute distress, patient oriented x3 and healthy appearing HENMT: COMMON NORMALS: normocephalic and atraumatic HEAD & SCALP: normocephalic and atraumatic Eye: COMMON NORMALS: Equal, round and reactive pupils present and EOMs intact bilaterally PUPIL: Yes Equal, round and reactive pupils present Neck/C-Spine: COMMON NORMALS: full ROM and supple Chest: COMMONS NORMALS: normal inspection of the chest and normal palpation of entire chest wall Resp: COMMON NORMALS: normal respiratory effort, No retractions, No use of accessory muscles and clear to auscultation bilaterally AUSCULTATION: clear to auscultation bilaterally Cardio: COMMON NORMALS: regular rate, regular rhythm and No murmurs present (Cardio) RATE: regular rate RHYTHM: regular rhythm GI: COMMON NORMALS: Normal to inspection, nondistended, normoactive bowel sounds present, Soft to palpation, non-tender and no masses PALPATION: Yes Soft to palpation Extremity: COMMON NORMALS: normal to inspection and full ROM Neuro: COMMON NORMALS: patient oriented x3, moves all extremities and no focal motor deficits Psych: COMMON NORMALS: mental status grossly normal, Normal thought process present and cooperative MOOD & AFFECT: Yes depressed mood THOUGHT PROCESS: Normal thought process present THOUGHT CONTENT: Yes Suicidality present Skin: COMMON NORMALS: no rashes or lesions noted and no wounds GENERAL SKIN EXAM: no rashes or lesions noted Course Vital Signs: Vital signs: Vital Signs Temperature 98.1 F 08/23/21 17:59 Pulse Rate 105 H 08/23/21 20:12 Respiratory Rate 17 08/23/21 20:12 Blood Pressure 163/101 08/23/21 20:12 Pulse Oximetry 95 08/23/21 20:12 [facility] - Psych Medical Decision Making Patient presents here with suicidal ideation along with alcohol intoxication he has had tick exposure so we will do a tick panel white count is normal he is afebrile spoke to psychiatrist will admit to psychiatric sim. Lab Data : 08/23/21 20:25 08/23/21 20:25 Laboratory Results WBC 4.8 10^3/uL (4.0-10.0) 08/23/21 20:25 RBC 4.17 10^6/uL (4.1-5.3) 08/23/21 20:25 Hgb 14.4 g/dL (11.7-16.6) 08/23/21: Hct 40.2 % (42.0-52.0) L 08/23/21: MCV 96.4 fl (80-94) H 08/23/21: MCH 34.5 pg (28.0-34.0) H 08/23/21: MCHC 35.8 g/dL (30.0-36.0) 08/23/21: RDW 12.7 % (12.1-15.1) 08/23/21: Plt Count 153 10^3/cmm (130-400) 08/23/21: MPV 9.9 fL (7.4-10.4) 08/23/21: Neut % (Auto) 38.2 % 08/23/21: Lymph % (Auto) 46.8 % 08/23/21: [place] % (Auto) 13.8 % 08/23/21: Eos % (Auto) 0.4 % 08/23/21: Baso % (Auto) 0.6 % 08/23/21: Neut # (Auto) 1.83 10^3/uL (1.8-7.7) 08/23/21 Lymph # (Auto) 2.2 10^3/uL (0.8-4.8) 08/23/21: [place] # (Auto) 0.7 10^3/uL (0.2-0.9) 08/23/21 Eos # (Auto) 0.0 10^3/uL (0.0-0.8) 08/23/21 Baso # (Auto) 0.0 10^3/uL (0.0-0.1) 08/23/21 Nucleated RBC % (auto) 0 % 08/23/21 Nucleated RBCs # 0.0 /100WBC 08/23/21: Sodium 140 mmol/L (136-145) 08/23/21: Potassium 3.4 mmol/L (3.5-5.1) L 08/23/21: Chloride 99 mmol/L (98-107) 06/01/22 20:25 Carbon Dioxide 26 mmol/L (22-29) 08/23/21 20:25 Anion Gap 18.4 (5-19) 08/23/21 20:25 BUN 9 mg/dL (6-20) 08/23/21 20:25 Creatinine 0.7 mg/dL (0.7-1.2) 08/23/21 20:25 GFR Calculation 119.9 mL/min (90-130) 08/23/21 20:25 Glucose 98 mg/dL (65-115) 08/23/21 20:25 Calculated Osmolality 289 mOsm/kg (285-295) 08/23/21 20:25 Calcium 9.4 mg/dL (8.5-10.5) 08/23/21 20:25 Total Bilirubin 0.3 mg/dL (0.15-1.2) 08/23/21 20:25 AST 48 U/L (0-40) H 08/23/21 20:25 ALT 22 U/L (0-41) 08/23/21 20:25 Alkaline Phosphatase 99 IU/L (40-130) 08/23/21 20:25 Total Protein 7.8 g/dL (6.6-8.7) 08/23/21 20:25 Albumin 4.8 g/dL (3.5-5.2) 08/23/21 20:25 Globulin 3.0 g/dL (1.3-4.6) 08/23/21 20:25 Lipase 74 U/L (13-60) H 08/23/21 20:25 Salicylates < 0.3 mg/dL (3-10) L 08/23/21 20:25 Urine Opiates Screen Negative ng/mL (Negative) 08/23/21 20:22 Acetaminophen < 5.0 ug/mL (10-30) L 08/23/21 20:25 Ur Barbiturates Screen Negative ng/mL (Negative) 08/23/21 20:22 Ur Phencyclidine Scrn Negative ng/mL (Negative) 08/23/21 20:22 Ur Amphetamines Screen Negative ng/mL (Negative) 08/23/21 20:22 U Benzodiazepines Scrn Negative ng/mL (Negative) 08/23/21 20:22 Urine Cocaine Screen Negative ng/mL (Negative) 08/23/21 20:22 U Marijuana (THC) Screen Positive ng/mL (Negative) H 08/23/21 20:22 Ethyl Alcohol 345 mg/dL (0-10) H* 08/23/21 20:25 Discharge Plan Discharge Patient Disposition: Admitted As Inpatient Admit Provider: Jeremy Cruz Clinical Impression: Suicidal ideation, Alcohol intoxication Condition: Stable Coding Level of Care Code ED Sodder for [place]so Fwd Exam Comprehensive
[2021-08-23 20:33] LABS: Basophils % 0.6 %; Eosinophils % 0.4 %; Hematocrit 40.2 % (42.0-52.0); Hemoglobin 14.4 g/dL (11.7-16.6); Lymphocytes # 2.2 10^3/uL (0.8-4.8); Lymphocytes % 46.8 %; Mean Corpuscular HGB Conc 35.8 g/dL (30.0-36.0); Mean Corpuscular Hemoglobin 34.5 pg (28.0-34.0); Mean Corpuscular Volume 96.4 fl (80-94); Mean Platelet Volume 9.9 fL (7.4-10.4); Monocytes # 0.7 10^3/uL (0.2-0.9); Monocytes % 13.8 %; Neutrophils # 1.83 10^3/uL (1.8-7.7); Neutrophils % 38.2 %; Nucleated Red Blood Cells % 0 %; Platelet Count 153 10^3/cmm (130-400); Red Blood Count 4.17 10^6/uL (4.1-5.3); Red Cell Distribution Width 12.7 % (12.1-15.1); White Blood Count 4.8 10^3/uL (4.0-10.0)
[2021-08-23 20:49] LABS: Amphetamines Screen Urine Negative (Negative); Barbiturates Screen Urine Negative (Negative); Benzodiazepines Screen Urine Negative (Negative); Cocaine Screen Urine Negative (Negative); Opiate Screen Urine Negative (Negative); PCP Screen Urine Negative (Negative); THC Screen Urine Positive (Negative)
[2021-08-23 20:53] LABS: Alanine Aminotransferase 22 U/L (0-41); Albumin Level 4.8 g/dL (3.5-5.2); Alkaline Phosphatase 99 IU/L (40-130); Anion Gap 18.4 (5-19); Aspartate Amino Transferase 48 U/L (0-40); Blood Urea Nitrogen 9 mg/dL (6-20); Calcium 9.4 mg/dL (8.5-10.5); Carbon Dioxide 26 mmol/L (22-29); Chloride 99 mmol/L (98-107); Glomerular Filtration Rate 119.9 mL/min (90-130); Glucose 98 mg/dL (65-115); Lipase 74 U/L (13-60); Osmolality Calculated 289 mOsm/kg (285-295); Potassium 3.4 mmol/L (3.5-5.1); Sodium 140 mmol/L (136-145); Total Bilirubin 0.3 mg/dL (0.15-1.2); Total Protein 7.8 g/dL (6.6-8.7)
[2021-08-23 20:57] LABS: Acetaminophen < 5.0 ug/mL (10-30); Salicylate < 0.3 mg/dL (3-10)
[2021-08-23 20:58] LABS: Alcohol Level 345 mg/dL (0-10)
[2021-08-23] MEDS: LORazepam 1 mg Tablet PO (23:13)
[2021-08-23 23:56] VITALS: BP 132/83; PULSE 130; RESP 18; TEMP 37; O2SAT 97
[2021-08-24 00:30] VITALS: BMI 22.8
[2021-08-24 06:00] VITALS: BP 148/81; PULSE 100; RESP 18; TEMP 37.2; O2SAT 98
--- NOTE | 2021-08-24 08:06 | PC.NURSE ---
VISIBLE TREMORS ARE NOTED ON ASSESSMENT. PT STATES HE USUALLY SHAKES AFTER DRINKING FOR A FEW DAYS, THEN STATES i DON'T DRINK THAT MUCH. COOPERATIVE WITH ASSESSMENT. SCORED 19 ON CIWA, MED NURSE TO ADMINISTER ATIVAN ORDERED PER SCALE. PT REQUEST TYLENOL FOR HEADACHE, MED NURSE TO ADMINISTER TYLENOL ORDERED. DENIES SI/HI. STATES HE IS HAVE SOME AVH, FLOATERS AND HEARING SOUNDS NOT VOICES. NOTHING COMMANDING.
[2021-08-24] MEDS: acetaminophen 325 mg Tablet 650 MG PO ×2 (08:07→20:20)
[2021-08-24] MEDS: LORazepam 2 mg Tablet PO ×2 (08:08→11:47)
[2021-08-24] MEDS: folic acid 1 mg Tablet PO (08:08)
[2021-08-24] MEDS: thiamine 100 mg Tablet PO (08:08)
[2021-08-24] MEDS: multivitamin therapeutic Tablet 1 TAB PO (08:08)
[2021-08-24] MEDS: ondansetron 4 MG Tablet PO (08:08)
[2021-08-24] MEDS: nicotine 21 mg Patch 1 PATCH TRANSDERMA (08:08)
[2021-08-24] MEDS: hyDROXYzine 25 mg Capsule 50 MG PO (11:47)
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
[2021-08-24 14:00] VITALS: BP 134/76; PULSE 92; RESP 18; TEMP 36.7; O2SAT 96
[2021-08-24] MEDS: tamsulosin 0.4 mg Capsule PO (20:19)
[2021-08-24] MEDS: trazodone 50 mg Tablet PO (20:19)
[2021-08-24 21:47] VITALS: BP 155/87; PULSE 81; RESP 18; TEMP 37.5; O2SAT 99
[2021-08-25 06:00] VITALS: BP 148/92; PULSE 110; RESP 18; TEMP 37.1; O2SAT 100
[2021-08-25] MEDS: escitalopram 10 mg Tablet PO (08:26)
[2021-08-25] MEDS: folic acid 1 mg Tablet PO (08:26)
[2021-08-25] MEDS: nicotine 21 mg Patch 1 PATCH TRANSDERMA (08:26)
[2021-08-25] MEDS: thiamine 100 mg Tablet PO (08:26)
[2021-08-25] MEDS: multivitamin therapeutic Tablet 1 TAB PO (08:26)
[2021-08-25 10:48] LABS: Lyme AB Screen <0.90 index
--- NOTE | 2021-08-25 12:57 | W.PM.NPUPNS ---
Subjective NPU Subjective: He says that he is feeling more calm and less depressed. He denies any suicidal ideation. He says he needs to get back to work and make money. He talked about all the work that he has lined up. He was told that the medication that he is getting from the lupe on his phone is Vistaril. He agreed to add Lexapro as an antidepressant. Mental Status Exam MSE Comments: This is a 50-year-old appropriate weight male who appears approximately his stated age and is in no acute distress. He is pleasant and cooperative with the evaluation. Eye contact is good. He is fairly well groomed and in hospital scrubs. psychomotor activity is normal. Speech is at a regular rate and rhythm, normal volume, good articulation, not pressured. Alert, oriented X3 Attention and concentration appears to be normal. Memory is intact Mood is mildly depressed. Affect is mildly dysphoric. Thought process is logical and goal-directed. Thought content: Denies auditory and visual hallucinations. No delusions or paranoia are noted. No current suicidal ideation. He denies homicidal ideation. Fund of knowledge is average. Insight and judgment appear to be poor. Impulse control is fair. Cognition: Patient Appearance: Appears Older than Age Level of Consciousness: Awake, Alert, Appropriate and Follows Commands Patient Cognition Impaired: No Ability to Follow Directions: Fair Patient Orientation (long list): Person, Place, Name, Age and Birthday Comprehension Ability: No Impairment Hallucination Type: None Delusion Description: Not Present Thought Process: Appropriate and Disorganized Affect: Affect Description: Appropriate Depressive Symptoms: Insomnia and Increased Anxiety Behavior: Patient Behavior: Appropriate and Cooperative Speech Pattern: Appropriate and Clear Vitals/I&O/Wt Last Vital Signs Temp 98.8 F 08/25/21 06:00 Pulse 110 H 08/25/21 06:00 Resp 18 08/25/21 06:00 BP 148/92 08/25/21 06:00 Pulse Ox 100 08/25/21 06:00 Weight last 48 hrs Weight 74.298 kg Weight 72.575 kg Data NPU : 08/23/21 20:25 08/23/21 20:25 A&P Assessment and plan (1) Suicidal ideation: Status: Acute (2) Major depressive disorder: Status: Acute (3) Insomnia: Status: Acute Plan This is a 50-year-old male who reports insomnia and depression who reports suicidal ideation yesterday but denies it previously. Plan: 1. Continue current medication. Add Lexapro 10 mg daily 2. Continue every 15 minute checks for safety. 3. Encourage individual, group and milieu therapies. 4. Encourage sober living treatment after discharge at the highest level of care to which he is willing to commit. 5. We will monitor for safety for himself in the community prior to discharge. Involuntary Hold Information 96 Hour Hold: 96 Hour Involuntary Admission: Yes 96 Hour Hold Ending Date: 08/29/21 96 Hour Hold Ending Time: 20:19 Attestations NPU Medical Necessity Statement*: Inpatient hospitalization is medically necessary and the clinically appropriate intervention at this time. We will initiate medications and make changes as indicated. Coding Level of Care Code Acute Ship'S Electronic Warfare Officer for Tirso Rodrigues Diagnoses Suicidal ideation R45.851 Major depressive disorder F32.9 Insomnia G47.00
[2021-08-25 14:00] VITALS: BP 144/98; PULSE 89; RESP 18; TEMP 36.8; O2SAT 98
[2021-08-25 19:26] VITALS: BP 162/97; PULSE 89; RESP 18; TEMP 36.8; O2SAT 100
[2021-08-25] MEDS: tamsulosin 0.4 mg Capsule PO (20:32)
[2021-08-26 06:00] VITALS: BP 145/82; PULSE 100; RESP 16; TEMP 36.7; O2SAT 100
[2021-08-26] MEDS: multivitamin therapeutic Tablet 1 TAB PO (09:01)
[2021-08-26] MEDS: folic acid 1 mg Tablet PO (09:01)
[2021-08-26] MEDS: nicotine 21 mg Patch 1 PATCH TRANSDERMA (09:01)
[2021-08-26] MEDS: thiamine 100 mg Tablet PO (09:01)
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
[2021-08-26 11:14] VITALS: BP 145/82; PULSE 100; RESP 16; TEMP 36.7; O2SAT 100
[2021-08-31 21:48] LABS: E. Chaffeensis AB IGG <1:64; E. Chaffeensis AB IGM <1:20
[2021-09-01 16:57] LABS: RMSF IGG DETECTED; RMSF IGM NOT DETECTED
== END 2021-08-26 11:39 | DRG 881 ==
LOC: ER 21:09 → NP 21:59
PROVIDERS: Admitting Provider Psychiatry & Neurology Psychiatry; Emergency Provider Emergency Medicine; Visit Provider Psychiatry & Neurology Psychiatry
DX: F32.9 Major depressive disorder, single episode, unspecified (principal); R45.851 Suicidal ideations; G47.00 Insomnia, unspecified; F41.9 Anxiety disorder, unspecified; R39.11 Hesitancy of micturition; F17.200 Nicotine dependence, unspecified, uncomplicated
CPT/HCPCS: 80053; 80306; 80307; 83690; 85025; 86618; 86666; 86757; 96372; 97150; 97165; 99285; J2060; Q0162

== ENCOUNTER 2021-09-13 16:18 | Emergency (ER) | payer MEDICAID, SELFPAY ==
[2021-09-13 16:41] VITALS: BP 112/76; PULSE 93; RESP 16; TEMP 37.8; O2SAT 99; BMI 22.3
--- NOTE | 2021-09-13 16:55 | ED_ITS ---
HPI - Skin/Abscess/Foreign Bdy General: Chief complaint: Skin/Abscess/Foreign Body Stated complaint: skin infection Time Seen by Provider: 09/13/21 16:45 Source: patient and police Mode of arrival: other (police custody) Limitations: no limitations History of Present Illness: Patient is a 50-year-old male who is brought in in police custody for evaluation of a right arm abscess. He also tells me he has smaller abscess to his anterior abdomen/trunk. Patient states he began noticing areas approximately 3 to 4 days ago. He was placed on Bactrim yesterday and is taking 1 tablet every 12 hours (has only had 1-2 doses so far). Patient is concerned as area continues to worsen. He has noticed a scant amount of drainage from the right arm abscess. Denies history of MRSA. Denies drug use. MD complaint: abscess/boil Onset (ago): day(s) Tetanus up to date: yes Location: RUE Severity: moderate Pain Consistency: constant Relieving factors: none Exacerbating factors: none Context: none Associated symptoms: Reports no associated symptoms; Deny chills, fever(s), nausea or vomiting Treatments prior to arrival: antibiotic Review of Systems Const: Denies: fever(s), chills, body aches, fatigue or malaise Card: Denies: chest pain GI: Denies: abdominal pain, nausea or vomiting Musc: Reports: extremity pain (R arm) and extremity swelling (R arm); Denies: neck pain, back pain, joint pain or joint swelling Skin/Breast: Reports: other (abscess to R arm/abdomen) Neuro: Denies: numbness in extremities, weakness in extremities or sensory changes PFS ED PFSH: Medical History Erectile dysfunction H/O fracture of femur Hesitancy Lower urinary tract symptoms (LUTS) Surgical History H/O inguinal hernia repair LEFT Family History Mother , IN HER 70'S Heart attack Diabetes Father , at age 83 Diabetes Heart disease COVID-19 Social History Smoking and tobacco status: current every day smoker Alcohol intake: current Alcohol intake frequency: 3 or more drinks per day Marital status: Current occupational status: employed 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 History of recent travel: No Physical Exam Const: COMMON NORMALS: no acute distress, average body habitus, patient oriented x3, no limitations, healthy appearing, alert and well nourished ORIENTATION/CONSCIOUSNESS: Yes awake, Yes oriented to person, Yes oriented to place and Yes oriented to time Resp: COMMON NORMALS: normal respiratory effort and clear to auscultation bilaterally AUSCULTATION: clear to auscultation bilaterally Cardio: COMMON NORMALS: regular rate and regular rhythm RATE: regular rate RHYTHM: regular rhythm Extremity: COMMON NORMALS: full ROM and capillary refill normal RIGHT UPPER EXTREMITY: Yes lower arm EXTREMITY IMAGE (BACK): 1. one inch indurated region with scant purulent drainage expressible; there is about two inches of surrounding erythema and warmth; no elbow joint involvement and he maintains full ROM here; no lymphangitic streaking Neuro: COMMON NORMALS: patient oriented x3, moves all extremities, no focal motor deficits and no sensory deficits noted SENSORIUM/ORIENTATION: Yes alert, Yes oriented to person, Yes oriented to place and Yes oriented to time Skin: NARRATIVE SKIN EXAM: see extremity above; small 1cm abscess to anterior abdomen/trunk w/o drainage or fluctuance Course Vital Signs: Vital signs: Vital Signs Temperature 100.1 F H 09/13/21 16:41 Pulse Rate 93 09/13/21 16:41 Respiratory Rate 16 09/13/21 16:41 Blood Pressure 112/76 09/13/21 16:41 Pulse Oximetry 99 09/13/21 16:41 MDM - Skin/Abscess/Foreign Bdy Medicial Decision Making Patient is not tachycardic. He does have low grade temp. I will double his dose of Bactrim and place him on 2 tabs every 12 hours and add Clindamycin. He was given IM Clindamycin prior to discharge. Strict return to ED precautions discussed with patient as well as the [facility] staff. Discussed warm compresses. Recommend keeping area covered due to him being incarcerated to limit the exposure to other inmates. Discharge Plan Discharge Patient Disposition: Home Clinical Impression: Abscess of right arm, Cutaneous abscess of abdominal wall Condition: Stable Prescriptions: New clindamycin HCl 300 mg capsule 300 mg PO Q6H 7 Days Qty: 28 0RF Bactrim DS 800-160 mg tablet 2 tab PO BID 7 Days Qty: 28 0RF No Action tamsulosin 0.4 mg capsule 0.4 mg PO .at bedtime Qty: 30 12RF hydroxyzine pamoate 25 mg Capsule 50 mg PO Q6H PRN (Reason: Anxiety) 30 Days Qty: 60 1RF escitalopram oxalate 10 mg Tablet 10 mg PO DAILY 30 Days Qty: 30 1RF Discharge Orders: Discharge ED (Routine); Ordered 09/13/21 Ordered By: Natacha Burns Patient Instructions: Abscess (ED) Activity Restrictions/Additional Instructions: As we discussed we will increase patient's Bactrim to 2 tabs [address] daily and place on Clindamycin. Patient needs to return to the emergency department 48 hours if abscess continues to worsen. He needs to return sooner for worsening pain, swelling, warmth, redness, streaking up his arm, fevers, or any other concerns you may have. As we discussed you may apply warm compresses to help facilitate drainage. Coding Level of Care Code ED Electrode Cleaner for Tirso Rodrigues
[2021-09-13] MEDS: clindamycin 150 mg/mL SDV 6 mL 600 MG IM (17:37)
== END 2021-09-13 18:00 | disposition home or self-care (01) ==
PROVIDERS: Emergency Provider Physician Assistant
DX: L02.413 Cutaneous abscess of right upper limb (principal); L02.211 Cutaneous abscess of abdominal wall; F17.210 Nicotine dependence, cigarettes, uncomplicated
CPT/HCPCS: 87070; 87075; 87077; 87186; 87205; 96372; 99284; J3490

== ENCOUNTER 2021-10-23 16:24 | Inpatient (IN) | payer OTHER, SELFPAY ==
[2021-10-23 16:40] VITALS: BP 101/65; PULSE 102; RESP 18; TEMP 36.8; O2SAT 100; BMI 22.9
--- NOTE | 2021-10-23 17:13 | ED.C_ITS ---
HPI - Psych General: Chief Complaint: Psychiatric Symptoms Stated Complaint: mental health eval Time Seen by Provider: 10/23/21 16:51 PFSH ED PFSH: Medical History (Updated 10/12/21 @ 10:23 by Dottie Kaiser) Erectile dysfunction H/O fracture of femur Hesitancy Lower urinary tract symptoms (LUTS) Psychiatric care Surgical History H/O inguinal hernia repair LEFT Family History Mother , IN HER 70'S Heart attack Diabetes Father , at age 83 Diabetes Heart disease COVID-19 Social History Smoking and tobacco status: current every day smoker Alcohol intake: current Alcohol intake frequency: 3 or more drinks per day Marital status: Current occupational status: employed 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 History of recent travel: No Course Vital Signs: Vital signs: Vital Signs Temperature 98.3 F 10/23/21 16:40 Pulse Rate 102 H 10/23/21 16:40 Respiratory Rate 18 10/23/21 16:40 Blood Pressure 101/65 10/23/21 16:40 Pulse Oximetry 100 10/23/21 16:40 Discharge Plan Discharge Condition: Stable Prescriptions: No Action tamsulosin 0.4 mg capsule 0.4 mg PO .at bedtime Qty: 30 12RF hydroxyzine pamoate 25 mg Capsule 50 mg PO Q6H PRN (Reason: Anxiety) 30 Days Qty: 60 1RF escitalopram oxalate 10 mg Tablet 10 mg PO DAILY 30 Days Qty: 30 1RF Coding Level of Care Code ED Fuel Cell Technician for Tirso Rodrigues
--- NOTE | 2021-10-23 17:14 | ED_ITS ---
HPI - General Adult General: Chief complaint: Psychiatric Symptoms Stated complaint: mental health eval Time Seen by Provider: 10/23/21 16:51 History of Present Illness: HPI: [50]yo patient w/ hx of bipolar disorder prsenting to the emergency for worsening depression. Patient called the crisis hotline earlier today was told to come to the emergency room because his depression has worsened despite taking medicine. On arrival, the patient is AAOx3 and cooperative with my evaluation. No focal complaints of chest pain, shortness of breath, palpitations, N/V, focal GI/ complaints. Currently denies SI/HI. No complaints of hallucinations. Onset: chronic Duration: ongoing Location: home Severity: severe Associated symptoms: Deny chest pain, dyspnea, nausea, rash, palpitations or vomiting Review of Systems Const: Denies: fever(s) or chills Eyes: Denies: change in vision ENMT: Denies: mouth pain Card: Denies: chest pain or palpitations Resp: Denies: dyspnea or non-productive cough GI: Denies: abdominal pain, nausea, vomiting or diarrhea : Denies: dysuria Musc: Denies: extremity pain Skin/Breast: Denies: rash or new lesions Neuro: Denies: weakness in extremities Psych: Reports: depression Larry/Lymph: Denies: easy bruising PFSH ED PFSH: Medical History (Updated 10/23/21 @ 17:34 by Elysia Sales MD) Bipolar disorder Erectile dysfunction H/O fracture of femur Hesitancy Lower urinary tract symptoms (LUTS) Psychiatric care Surgical History H/O inguinal hernia repair LEFT Family History Mother , IN HER 70'S Heart attack Diabetes Father , at age 83 Diabetes Heart disease COVID-19 Social History Smoking and tobacco status: current every day smoker Alcohol intake: current Alcohol intake frequency: 3 or more drinks per day Marital status: Current occupational status: employed 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 History of recent travel: No Physical Exam Const: COMMON NORMALS: alert HENMT: COMMON NORMALS: atraumatic HEAD & SCALP: atraumatic MOUTH: moist mucous membranes not abnormal Eye: COMMON NORMALS: EOMs intact bilaterally and conjunctivae normal CONJUNCTIVA: Yes conjunctivae normal Neck/C-Spine: COMMON NORMALS: full ROM and supple Resp: COMMON NORMALS: normal respiratory effort and clear to auscultation bilaterally AUSCULTATION: clear to auscultation bilaterally Cardio: COMMON NORMALS: regular rate RATE: regular rate GI: COMMON NORMALS: Soft to palpation and non-tender PALPATION: Yes Soft to palpation Extremity: COMMON NORMALS: full ROM Neuro: SENSORIUM/ORIENTATION: Yes alert MOTOR EXAM: No Abnormal motor strength present and Other motor observations present (no focal motor deficits) Psych: COMMON NORMALS: speech normal SPEECH: Yes normal speech MOOD & AFFECT: Yes euthymic mood Course Vital Signs: Vital signs: Vital Signs Temperature 98.3 F 10/23/21 16:40 Pulse Rate 102 H 10/23/21 16:40 Respiratory Rate 18 10/23/21 16:40 Blood Pressure 101/65 10/23/21 16:40 Pulse Oximetry 100 10/23/21 16:40 MDM - General Adult Medical Decision Making [50]yo patient w/ hx of bipolar disorder presenting for worsening depression. HDS, exam within normal limit Thoughts are linear and organized, and the patient has no AH/VH, or HI. Clinically the patient displays no overt toxidrome; they are well appearing, with low suspicion for toxic ingestion given history and exam. Symptoms unlikely 2/2 anemia, hypothyroidism, infection, or ICH. Workup: CBC, CMP, Lipase, salicylate/tylenol, UDS Lab findings: wnl [5:34pm] On reassessment, labs and workup wnl. Patient is hemodynamically stable with no acute medical complaints. Case discussed with psychiatric provider Dr. Roque at [facility] psych inpatient with recommendation for admission Disposition: Psych Discharge Plan Discharge Patient Disposition: Admitted As Inpatient Clinical Impression: Depression Condition: Stable Coding Level of Care Code ED Craps Manager for Chg Fwd Exam Comprehensive
[2021-10-23 18:03] LABS: Basophils % 0.1 %; Eosinophils # 0.1 10^3/uL (0.0-0.8); Eosinophils % 0.7 %; Hematocrit 37.3 % (42.0-52.0); Hemoglobin 12.3 g/dL (11.7-16.6); Lymphocytes # 4.3 10^3/uL (0.8-4.8); Lymphocytes % 56.5 %; Mean Corpuscular Hemoglobin 31.9 pg (28.0-34.0); Mean Corpuscular Volume 96.9 fl (80-94); Mean Platelet Volume 10.1 fL (7.4-10.4); Monocytes # 0.3 10^3/uL (0.2-0.9); Monocytes % 4.2 %; Neutrophils # 2.94 10^3/uL (1.8-7.7); Neutrophils % 38.4 %; Nucleated Red Blood Cells % 0 %; Platelet Count 222 10^3/cmm (130-400); Red Blood Count 3.85 10^6/uL (4.1-5.3); Red Cell Distribution Width 12.8 % (12.1-15.1); White Blood Count 7.7 10^3/uL (4.0-10.0)
[2021-10-23] MEDS: nicotine 21 mg Patch 1 PATCH TRANSDERMA (18:19)
[2021-10-23 18:32] LABS: Alanine Aminotransferase 17 U/L (0-41); Albumin Level 4.3 g/dL (3.5-5.2); Alkaline Phosphatase 84 IU/L (40-130); Anion Gap 14.8 (5-19); Aspartate Amino Transferase 20 U/L (0-40); Blood Urea Nitrogen 15 mg/dL (6-20); Calcium 8.9 mg/dL (8.5-10.5); Carbon Dioxide 23 mmol/L (22-29); Chloride 108 mmol/L (98-107); Glomerular Filtration Rate 143.2 mL/min (90-130); Glucose 108 mg/dL (65-115); Lipase 28 U/L (13-60); Osmolality Calculated 295 mOsm/kg (285-295); Potassium 3.8 mmol/L (3.5-5.1); Sodium 142 mmol/L (136-145); Total Bilirubin 0.2 mg/dL (0.15-1.2); Total Protein 7.3 g/dL (6.6-8.7)
[2021-10-23 18:34] LABS: Acetaminophen < 5.0 ug/mL (10-30); Salicylate < 0.3 mg/dL (3-10)
[2021-10-23 19:15] VITALS: BP 120/79; PULSE 90; RESP 14
--- NOTE | 2021-10-23 19:49 | PC.PHAR ---
PT STATES HE FILLS AT [facility] ([facility]) UNABLE TO CONFIRM WHAT RX HE TAKES FOR SLEEP DUE TO THE PHARMACY BEING CLOSED- PT STATES THIS IS THE ONLY MEDICATION HE CURRENTLY TAKES- NOTHING FOR SLEEP ON EXTERNAL MED LIST
[2021-10-23 20:11] LABS: Amphetamines Screen Urine Negative (Negative); Barbiturates Screen Urine Negative (Negative); Benzodiazepines Screen Urine Negative (Negative); Cocaine Screen Urine Negative (Negative); Opiate Screen Urine Negative (Negative); PCP Screen Urine Negative (Negative); THC Screen Urine Negative (Negative)
[2021-10-23 21:04] LABS: Alcohol Level 245 mg/dL (0-10)
[2021-10-23 21:43] VITALS: BP 128/85; PULSE 87; RESP 15; TEMP 37.1; O2SAT 97
[2021-10-23 22:00] VITALS: BP 128/85; PULSE 87; RESP 15; TEMP 37.1; O2SAT 97
--- NOTE | 2021-10-23 22:10 | PC.NURSE ---
Patient reports taking Flomax
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
--- NOTE | 2021-10-23 22:22 | PC.NURSE ---
Patient reports occasional alcohol use although BAL in ER is 245.
[2021-10-23] MEDS: trazodone 50 mg Tablet PO (22:43)
[2021-10-24 05:59] VITALS: BP 135/85; PULSE 83; RESP 16; TEMP 36.6; O2SAT 97
[2021-10-24] MEDS: escitalopram 10 mg Tablet PO (09:26)
[2021-10-24] MEDS: thiamine 100 mg Tablet PO (09:26)
[2021-10-24] MEDS: folic acid 1 mg Tablet PO (09:26)
[2021-10-24] MEDS: nicotine 21 mg Patch 1 PATCH TRANSDERMA (09:26)
[2021-10-24] MEDS: multivitamin therapeutic Tablet 1 TAB PO (09:26)
[2021-10-24 14:00] VITALS: BP 102/65; PULSE 97; RESP 16; TEMP 36.6; O2SAT 98
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
[2021-10-24 19:52] VITALS: BP 130/86; PULSE 86; RESP 20; TEMP 36.4; O2SAT 99
[2021-10-24] MEDS: trazodone 50 mg Tablet PO (20:32)
[2021-10-24] MEDS: tamsulosin 0.4 mg Capsule PO (20:32)
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
[2021-10-25 06:00] VITALS: BP 123/79; PULSE 65; RESP 20; TEMP 36.7; O2SAT 99
[2021-10-25] MEDS: thiamine 100 mg Tablet PO (08:28)
[2021-10-25] MEDS: folic acid 1 mg Tablet PO (08:29)
[2021-10-25] MEDS: multivitamin therapeutic Tablet 1 TAB PO (08:29)
[2021-10-25] MEDS: escitalopram 10 mg Tablet PO (08:29)
[2021-10-25] MEDS: nicotine 21 mg Patch 1 PATCH TRANSDERMA (09:35)
[2021-10-25 14:00] VITALS: BP 138/85; PULSE 93; RESP 16; TEMP 36.8; O2SAT 93
--- NOTE | 2021-10-25 14:26 | P.NPUPN_ITS ---
Subjective NPU Subjective: Patient is 50 year old white male with history of depressed mood and anxiety who continues to report depressed mood on the unit. He continues to isolate self and report signficant stressors with managing his . He reports some sleep continuity disruption and reports low energy and low motivation on the milieu. Patient described having a panic attack recently for the first time. He reports no triggers other than increased chronic worry. Mental Status Exam MSE Comments: This is a 50-year-old appropriate weight male who appears approximately his stated age and is in mild distress. He is pleasant and cooperative with the evaluation. Eye contact is fair. He is fairly well groomed and in hospital scrubs. psychomotor activity showed slowing. Speech is monotone in quality with slower rate and normal rhythm, normal volume, good articulation, not pressured. Alert, oriented X3 Attention and concentration appears to be normal. Memory is intact Mood described as depressed. Affect is restricted and mood congruent. Thought process is logical and goal-directed. Thought content: Denies auditory and visual hallucinations. No delusions or paranoia are noted. No active suicidal ideation. He denies homicidal ideation. Insight and judgment appear limited. Impulse control is fair. Vitals/I&O/Wt Last Vital Signs Temp 98.3 F 10/25/21 18:42 Pulse 90 10/25/21 18:42 Resp 16 10/25/21 18:42 BP 129/68 10/25/21 18:42 Pulse Ox 100 10/25/21 18:42 O2 Del Method 10/25/21 06:00 Data NPU : 10/23/21 17:43 10/23/21 17:43 A&P Assessment and plan (1) Major depressive disorder: Status: Acute (2) Anxiety disorder: Status: Acute Plan 50 year old white male with hx of depression and anxiety admitted after being overwhelmed by current financial stressors and marital stressors. 1. Increase Lexapro 20mg daily with addition of routine trazodone at night. 2. Encourage individual, group and milieu therapy 3. Continue q-15 minute check for safety 4. Recommend sober living treatment at the highest level of care to which the patient is willing to commit. Involuntary Hold Information 96 Hour Hold: 96 Hour Involuntary Admission: No 96 Hour Hold Ending Date: 08/29/21 96 Hour Hold Ending Time: 20:19 Attestations NPU Medical Necessity Statement*: Inpatient hospitalization is medically necessary and the clinically appropriate intervention at this time. We will monitor medications and make changes as indicated with likely length of stay is three to five days. 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
[2021-10-25] MEDS: hyDROXYzine 25 mg Capsule 50 MG PO ×2 (15:03→20:00)
[2021-10-25 18:42] VITALS: BP 129/68; PULSE 90; RESP 16; TEMP 36.8; O2SAT 100
[2021-10-25] MEDS: tamsulosin 0.4 mg Capsule PO (20:00)
[2021-10-25] MEDS: trazodone 50 mg Tablet PO (20:01)
[2021-10-26 06:00] VITALS: BP 115/71; PULSE 63; RESP 16; TEMP 36.6; O2SAT 98
[2021-10-26] MEDS: multivitamin therapeutic Tablet 1 TAB PO (09:21)
[2021-10-26] MEDS: folic acid 1 mg Tablet PO (09:21)
[2021-10-26] MEDS: escitalopram 10 mg Tablet 20 MG PO (09:21)
[2021-10-26] MEDS: thiamine 100 mg Tablet PO (09:21)
[2021-10-26] MEDS: nicotine 21 mg Patch 1 PATCH TRANSDERMA (10:14)
[2021-10-26] MEDS: hyDROXYzine 25 mg Capsule 50 MG PO (11:46)
--- NOTE | 2021-10-26 11:47 | PC.NURSE ---
PRN VISTARIL 50 MG GIVEN PO PER PT C/O STATED ANXIETY
--- NOTE | 2021-10-26 13:42 | W.PM.NPUPNS ---
Subjective NPU Subjective: Patient is 50 year old white male with history of depressed mood and anxiety admitted with suicidal ideation. He reports history of difficulty with managing his stress and reports having attacks of anxiety more frequently as patient reports significant problem managing his stressors. He reports that he was worried about his potential legal problems and financial stress. He has reported low energy and low motivation with continued sleep continuity disruption. He reports struggles with managing his worry. Mental Status Exam MSE Comments: This is a 50-year-old appropriate weight male who appears approximately his stated age and is in mild distress. He is pleasant and cooperative with the evaluation. Eye contact is fair. He is fairly well groomed and in hospital scrubs. psychomotor activity was slow. Speech is monotone in quality with slower rate and normal rhythm, normal volume, good articulation. Alert, oriented X3 Attention and concentration appears to be normal. Memory is intact Mood reported as depressed. Affect is restricted and mood congruent. Thought process is logical and goal-directed. Thought content: Denies auditory and visual hallucinations. No delusions or paranoia are noted. No active suicidal ideation. He denies homicidal ideation. Insight and judgment appear limited. Impulse control is fair. Vitals/I&O/Wt Last Vital Signs Temp 97.9 F 10/26/21 19:41 Pulse 66 10/26/21 19:41 Resp 15 10/26/21 19:41 BP 111/64 10/26/21 19:41 Pulse Ox 96 10/26/21 19:41 O2 Del Method 10/26/21 19:41 Data NPU : 10/23/21 17:43 10/23/21 17:43 A&P Assessment and plan (1) Major depressive disorder: Status: Acute (2) Anxiety disorder: Status: Acute (3) Suicidal ideation: Status: Acute (4) Insomnia: Status: Acute Plan 50 year old white male with hx of depression and anxiety admitted after being overwhelmed by current financial stressors and marital stressors. 1. Continue Lexapro 20mg daily with addition of seroquel 100mg at night to target depression. 2. Encourage individual, group and milieu therapy 3. Continue q-15 minute check for safety 4. Recommend sober living treatment at the highest level of care to which the patient is willing to commit. Involuntary Hold Information 96 Hour Hold: 96 Hour Involuntary Admission: No 96 Hour Hold Ending Date: 08/29/21 96 Hour Hold Ending Time: 20:19 Attestations NPU Medical Necessity Statement*: Inpatient hospitalization is medically necessary and the clinically appropriate intervention at this time. We will monitor medications and make changes as indicated with likely length of stay is three to five days. 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
[2021-10-26 13:51] VITALS: BP 110/73; PULSE 100; RESP 18; TEMP 36.7; O2SAT 97
[2021-10-26] MEDS: OLANZapine 5 mg ODT PO (14:06)
--- NOTE | 2021-10-26 14:07 | PC.NURSE ---
PRN ZYPREXA ZYDIS 5 MG GIVEN PO PER PT C/O FURTHER ANXIETY/AGITATION.
[2021-10-26 19:41] VITALS: BP 111/64; PULSE 66; RESP 15; TEMP 36.6; O2SAT 96
[2021-10-26] MEDS: tamsulosin 0.4 mg Capsule PO (20:58)
[2021-10-26] MEDS: quetiapine 100 mg Tablet PO (20:58)
[2021-10-27 06:00] VITALS: RESP 16
[2021-10-27] MEDS: folic acid 1 mg Tablet PO (08:22)
[2021-10-27] MEDS: escitalopram 10 mg Tablet 20 MG PO (08:22)
[2021-10-27] MEDS: multivitamin therapeutic Tablet 1 TAB PO (08:22)
[2021-10-27] MEDS: hyDROXYzine 25 mg Capsule 50 MG PO (08:22)
[2021-10-27] MEDS: thiamine 100 mg Tablet PO (08:22)
--- NOTE | 2021-10-27 08:23 | PC.NURSE ---
PRN VISTARIL 50 MG GIVEN PO PER PT C/O STATED ANXIETY
[2021-10-27] MEDS: LORazepam 2 mg Tablet PO (13:42)
--- NOTE | 2021-10-27 13:43 | P.NPUPN_ITS ---
Subjective NPU Subjective: Patient is 50 year old white male with history of depressed mood and anxiety admitted with suicidal ideation. He reports history of difficulty with managing his stress and reports still having considerable anxiety. He reports having difficulties with managing his chronic worry. He often complains of having tension and states that he often becomes irritable when he worries too much. He reports some diminished anxiety and improved mood with the increase in Lexapro. The patient reports that he was able to sleep throughout the whole night last night after initiation of Seroquel. He reports no current thoughts of hurting himself or others. Mental Status Exam MSE Comments: This is a 50-year-old appropriate weight male who appears approximately his stated age and is in mild distress. He is pleasant and cooperative with the evaluation. Eye contact is fair. He is fairly well g roomed and in hospital scrubs. There was continued presence of mild psychomotor retardation.. Speech is monotone in quality with slower rate and normal rhythm, normal volume, good articulation. Alert, oriented X3 Attention and concentration appears to be normal. Memory is intact Mood reported as better Affect is restricted and mood congruent. Thought process is logical and goal-directed. Thought content: Denies auditory and visual hallucinations. No delusions or paranoia are noted. No active suicidal ideation. He denies homicidal ideation. Insight and judgment appear limited. Impulse control is fair. Vitals/I&O/Wt Last Vital Signs Temp 97.9 F 10/26/21 19:41 Pulse 66 10/26/21 19:41 Resp 16 10/27/21 06:00 BP 111/64 10/26/21 19:41 Pulse Ox 96 10/26/21 19:41 O2 Del Method 10/26/21 19:41 Data NPU : 10/23/21 17:43 10/23/21 17:43 A&P Assessment and plan (1) Major depressive disorder: Status: Acute (2) Anxiety disorder: Status: Acute (3) Suicidal ideation: Status: Acute (4) Insomnia: Status: Acute Plan 50 year old white male with hx of depression and anxiety admitted after being overwhelmed by current financial stressors and marital stressors with suicidal ideation. 1. Continue Lexapro 20mg daily with addition of seroquel 100mg at night to target depression. 2. Encourage individual, group and milieu therapy 3. Continue q-15 minute check for safety 4. Recommend sober living treatment at the highest level of care to which the patient is willing to commit. 5. Consider, likely follow up at [facility] with weekly CBT and psychiatrist when stabilized. Involuntary Hold Information 96 Hour Hold: 96 Hour Involuntary Admission: No 96 Hour Hold Ending Date: 08/29/21 96 Hour Hold Ending Time: 20:19 Attestations NPU Medical Necessity Statement*: Inpatient hospitalization is medically necessary and the clinically appropriate intervention at this time. We will monitor medications and make changes as indicated with likely length of stay is 1-2 days. 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
--- NOTE | 2021-10-27 13:47 | PC.NURSE ---
Jittery Patient reports being jittery and anxious. Patient is visibly shaking with arms extended, minimal perspiration, slight headache. CIWA 5. PO Ativan given to patient.
[2021-10-27 14:00] VITALS: BP 116/76; PULSE 114; RESP 20; TEMP 37.1; O2SAT 98
[2021-10-27 20:38] VITALS: BP 114/70; PULSE 81; RESP 17; O2SAT 97
[2021-10-27] MEDS: tamsulosin 0.4 mg Capsule PO (20:53)
[2021-10-27] MEDS: quetiapine 100 mg Tablet PO (20:53)
[2021-10-28] MEDS: hyDROXYzine 25 mg Capsule 50 MG PO (03:10)
[2021-10-28 05:49] VITALS: BP 113/76; PULSE 86; RESP 16; TEMP 36.6; O2SAT 94
[2021-10-28] MEDS: multivitamin therapeutic Tablet 1 TAB PO (09:14)
[2021-10-28] MEDS: escitalopram 10 mg Tablet 20 MG PO (09:14)
[2021-10-28] MEDS: folic acid 1 mg Tablet PO (09:14)
[2021-10-28] MEDS: thiamine 100 mg Tablet PO (09:14)
[2021-10-28] MEDS: nicotine 21 mg Patch 1 PATCH TRANSDERMA (09:30)
[2021-10-28 09:51] VITALS: BP 113/76; PULSE 86; RESP 16; TEMP 36.6; O2SAT 94
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
== END 2021-10-28 12:35 | disposition home or self-care (01) | DRG 881 ==
LOC: ER 18:41 → NP 22:07
PROVIDERS: Admitting Provider Psychiatry & Neurology Psychiatry; Emergency Provider Emergency Medicine; Visit Provider Psychiatry & Neurology Psychiatry
DX: F32.9 Major depressive disorder, single episode, unspecified (principal); R45.851 Suicidal ideations; F17.210 Nicotine dependence, cigarettes, uncomplicated; N40.1 Benign prostatic hyperplasia with lower urinary tract symptoms; F41.9 Anxiety disorder, unspecified; G47.00 Insomnia, unspecified; Z63.0 Problems in relationship with spouse or partner; Z65.3 Problems related to other legal circumstances; Z87.828 Personal history of other (healed) physical injury and trauma
CPT/HCPCS: 36415; 80053; 80306; 80307; 83690; 85025; 97150; 97165; 99285

== ENCOUNTER 2021-12-19 12:41 | Outpatient (CLI) | payer MEDICAID, SELFPAY ==
--- NOTE | 2021-12-19 12:52 | CT_ITS ---
WS: [id number] LDCT LUNG CANCER SCREENING TECHNIQUE: Noncontrast CT of the chest with coronal and sagittal reformatted images. CLINICAL INFORMATION: NICOTINE DEPENDANCE COMPARISON: None. DLP: 88.00 mGy.cm DIvol: Mean CTDIvol: 1.60 (mGy) All CT scans at [facility] use at least one of these dose optimization techniques: automat ed exposure control; mA and/or kV adjustment per patient size (includes targeted exams where dose is matched to clinical indication); or iterative reconstruction. FINDINGS: 7 mm noncalcified ovoid nodule RIGHT lower lobe. Additional adjacent RIGHT lower lobe nodule measurin g 6 mm. These are adjacent to the diaphragm. Normal caliber thoracic aorta. Coronary calcification. No mediastinal or hilar lymphadenopathy. No ax illary lymphadenopathy. Adrenal glands are normal. CT/CT lung screening 70645 IMPRESSION: 2 ovoid noncalcified nodules RIGHT lower lobe along the diaphragm m easuring 6 to 7 mm. Recommend 6 month LDCT . LUNG-RADS: 3-Probably Benign FOLLOW UP: 6 Month LDCT
== END 2021-12-19 12:42 | disposition home or self-care (01) ==
LOC: RAD 12:42
PROVIDERS: PCP Family Medicine; Visit Provider Family Medicine
DX: Z12.2 Encounter for screening for malignant neoplasm of respiratory organs (principal); F17.210 Nicotine dependence, cigarettes, uncomplicated
CPT/HCPCS: 71271

== ENCOUNTER 2022-01-04 06:22 | Day surgery (SDC) | payer MEDICAID, SELFPAY ==
[2022-01-01 10:57] VITALS: BMI 23.4
--- NOTE | 2022-01-04 06:31 | P.HP_ITS ---
Same Day Surgery H&P Indication for Procedure/HPI DATE OF PROCEDURE: January 04, 2022 CHIEF COMPLAINT/INDICATIONFOR SURGICAL PROCEDURE: Screening colonoscopy PREOP DIAGNOSIS: Screening colonoscopy PLANNED PROCEDURE: Operation Date: 01/04/22 08:00 Proposed Procedures p Colonoscopy 55848,Z12.11(Not Applicable) - Roger Voss MD This is a pleasant 51 years old gentleman referred to my practice for screening colonoscopy. Patient reports that his father had history of colon cancer in his 50s. Patient himself denies history of blood loss or change in bowel habits. ROS All systems have been reviewed negative except as for the above or per problem list. Medications/Allergies* Home Medications Medication Instructions Recorded Confirmed Type tamsulosin 0.4 mg capsule (Flomax) 0.4 mg PO BEDTIME 10/24/21 01/04/22 History escitalopram oxalate 10 mg tablet 10 mg PO DAILY 01/01/22 01/04/22 History (Lexapro) quetiapine 100 mg tablet (Seroquel) 100 mg PO DAILY 01/01/22 01/04/22 History varenicline 1 mg tablet (Chantix) 0.5 mg PO DAILY 01/01/22 01/04/22 History Allergies/Adverse Reactions Allergy/AdvReac Type Severity Reaction Status Date / Time No Known Allergies Allergy Verified 01/04/22 06:31 Pertinent History/Comorbid Conditions* Medical History (Updated 11/14/21 @ 14:01 by Madonna Sood APRN) Bipolar disorder Erectile dysfunction H/O fracture of femur Hesitancy Lower urinary tract symptoms (LUTS) Psychiatric care Surgical History (Updated 09/17/19 @ 10:38 by Soraida Wallace MD) H/O inguinal hernia repair LEFT Family History (Updated 06/19/21 @ 10:42 by Kellen Lion LPN) Father, at age 83 Mother, IN HER 70'S COVID-19 Father Diabetes Mother Father Heart disease Father Heart attack Mother Social History Smoking and tobacco status: current every day smoker cigarettes Packs smoked pe r day: 1 Years cigarettes smoked: 38 Quit status (tobacco): considering quitting Second hand smoke exposure: Yes Alcohol intake: current Alcohol intake frequency: few times a month Alcohol type: beer Desire information about alcohol rehabilitation?: No Marital status: Current occupational status: employed 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 I discussed with the patient in details the risks,benefits,alternatives and indications.The risk of aspiration, bleeding, soft tissue injury, perforation of the colon ,missed lesions and other potential concomitant complications were explained to the patient in details,also the potential need for Laproscoy/Laparotomy to repair any related complications including but not limited to colectomy and or Closotomy.The patient understood this well and did agree to proceed. Rationale was carefully and clearly discussed with the patient.Appropriate informed consent have been reviewed and signed All questions have been answered and all concerns have been addressed to patient's satisfaction. Verbal and written Instructions were given to the patient for colonoscopy prep Coding Level of Care Code Acute Educational Speech Language Clinician for Tirso Rodrigues
[2022-01-04 06:40] VITALS: BP 158/94; PULSE 88; RESP 18; TEMP 36.5; O2SAT 97
[2022-01-04] MEDS: sodium chloride 0.9% 1,000 ML 30 ML IV (06:46)
--- NOTE | 2022-01-04 07:27 | ANES.PREANE2 ---
Pre-Anesthetic Assessment Height/Weight: Height 1.8 m Weight 76.204 kg Temp Pulse Resp BP Pulse Ox O2 Del Method 97.7 F 88 18 158/94 97 01/04/22 06:40 01/04/22 06:40 01/04/22 06:40 01/04/22 06:40 01/04/22 06:40 01/04/22 06:40 Preop Diagnosis: Screening colonoscopy Operation Date: 01/04/22 08:00 Proposed Procedures p Colonoscopy 79862,Z12.11(Not Applicable) - Roger Voss MD Familial anesthetic complications: None Was Beta Paula taken within 24 hours: N/A Was Clonidine taken within 24 hours: N/A Last intake: Intake Last Liquid Date 01/03/22 Last Liquid Time 22:00 Last Solid Date 01/02/22 Last Solid Time 00:00 Social Tobacco and No alcohol Exam alert, oriented x 3, clear to auscultation bilaterally and regular rate & rhythm Airway Mallampati: Class II Dentition: chipped (front tooth) Neuropsych Anxiety Anesthetic Plan ASA status: 1 Anesthesia: MAC Risk of > 500 ml blood loss (7ml/kg in children): No Medications/Allergies Home Medications Medication Instructions Recorded Confirmed Last Taken Type tamsulosin 0.4 mg capsule (Flomax) 0.4 mg PO BEDTIME 10/24/21 01/04/22 01/02/22 History thiamine mononitrate (vit B1) 100 100 mg PO DAILY 30 days #30 tabs 12/04/21 01/04/22 01/02/22 Rx mg tablet (Vitamin B-1 (mononitrate)) escitalopram oxalate 10 mg tablet 10 mg PO DAILY 01/01/22 01/04/22 01/03/22 History (Lexapro) quetiapine 100 mg tablet (Seroquel) 100 mg PO DAILY 01/01/22 01/04/22 01/02/22 History varenicline 1 mg tablet (Chantix) 0.5 mg PO DAILY 01/01/22 01/04/22 01/02/22 History Allergies Allergy/AdvReac Type Severity Reaction Status Date / Time No Known Allergies Allergy Verified 01/04/22 06:31 Current Medications Generic Name Dose Route Start Last Admin Trade Name Freq PRN Reason Stop Dose Admin Sodium Chloride 1,000 mls @ 30 mls/hr 01/04/22 06:30 01/04/22 06:46 Sodium Chloride 0.9% IV 01/05/22 06:29 30 mls/hr .Q24H JONG Administration PFSH Anesthesia Medical History Bipolar disorder Erectile dysfunction H/O fracture of femur Hesitancy Lower urinary tract symptoms (LUTS) Psychiatric care Surgical History H/O inguinal hernia repair LEFT Family History Mother , IN HER 70'S Heart attack Diabetes Father , at age 83 Diabetes Heart disease COVID-19 Social History Smoking and tobacco status: current every day smoker cigarettes Packs smoked per day: 1 Years cigarettes smoked: 38 Quit status (tobacco): considering quitting Second hand smoke exposure: Yes Alcohol intake: current Alcohol intake frequency: few times a month Alcohol type: beer Desire information about alcohol rehabilitation?: No Marital status: Current occupational status: employed 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
[2022-01-04 08:32] VITALS: BP 108/80; PULSE 106; RESP 18; TEMP 36.6; O2SAT 96
[2022-01-04 08:37] VITALS: BP 138/87; PULSE 84; RESP 18; O2SAT 95
[2022-01-04 08:47] VITALS: BP 125/70; PULSE 64; RESP 20; O2SAT 98
--- NOTE | 2022-01-04 14:01 | ANE.PACU2 ---
Inpatient post-anesthesia follow up: Airway intact: Yes Vital signs: Temperature 97.8 F Pulse Rate 64 Respiratory Rate 20 Blood Pressure 125/70 Pulse Oximetry 98 Oxygen Delivery Me thod Room Air Oxygen Flow Rate Fraction of Inspir ed Oxygen Hydration adequate: Yes Nausea and vomiting: No Pain level: 1 Mental status: Baseline
== END 2022-01-04 09:02 | disposition home or self-care (01) ==
PROVIDERS: PCP Family Medicine; Visit Provider Surgery
PROC: 0DJD8ZZ Inspection of Lower Intestinal Tract, Via Natural or Artificial Opening Endoscopic (ICD-10-PCS; CPT 45378; principal; 2022-01-04 08:00)
DX: Z12.11 Encounter for screening for malignant neoplasm of colon (principal); Z80.0 Family history of malignant neoplasm of digestive organs; F17.210 Nicotine dependence, cigarettes, uncomplicated
CPT/HCPCS: 45378; J2704; J3010; J7030

== ENCOUNTER 2022-01-04 09:53 | Outpatient (CLI) | payer MEDICAID, SELFPAY ==
--- NOTE | 2022-01-04 | XR_ITS ---
WS: [id number] Right shoulder, 2 views, 01/04/2022 Clinical Data: Shoulder pain, right Comparison: Right shoulder, 05/22/2021 Findings: No new fractures or dislocations are seen. The AC joint is normal. The adjacent right clavicle, right scapula and ribs are normal. The soft tissues are unremarkable. There is a healed fracture of the right humeral head and neck XR/XR shoulder RT min 2V* [id number] Impression: Negative right shoulder.
--- NOTE | 2022-01-04 | XR_ITS ---
WS: [id number] Right knee, 3 views, 01/04/2022 Clinical Data: Knee pain, right Comparison: Right knee, 05/22/2021 Findings: No fractures or dislocations are seen. The joint spaces are normal. The patella is intact. The soft t issues are unremarkable. XR/XR knee RT 3V* [id number] Impression: Negative right knee. Kellgren-José Manuel Classification: grade 0 (none): definite absence of x-ray karl nges of osteoarthritis
== END 2022-01-04 09:54 | disposition home or self-care (01) ==
LOC: RAD 09:57
PROVIDERS: PCP Family Medicine; Visit Provider Family Medicine
DX: M25.561 Pain in right knee (principal); M25.511 Pain in right shoulder
CPT/HCPCS: 73030; 73562

== ENCOUNTER 2022-01-10 06:20 | Outpatient (CLI) | payer MEDICAID, SELFPAY ==
--- NOTE | 2022-01-10 | XR_ITS ---
NOTE: Report was unsigned for reason: Order was entered for left hand, right hand images submitted. Original Signature date and time was: 01/10/22 @ 1514 RIGHT hand, 3 views, 01/10/2022 Clinical Data: Injury to tendon of right index finger Comparison: None. Findings: No fractures or dislocations are seen. The soft tissues are unremarkable. The joint spaces are normal Impression: Negative RIGHT hand. MTDD
--- NOTE | 2022-01-10 | XR_ITS ---
WS: [id number] Left hand, 3 views, 01/10/2022 Clinical Data: Injury to tendon of right index finger Comparison: None. Findings: No fractures or dislocations are seen. The soft tissues are unremarkable. The joint spaces are normal
== END 2022-01-10 06:21 | disposition home or self-care (01) ==
LOC: RAD 06:22
PROVIDERS: PCP Family Medicine; Visit Provider Family Medicine
DX: S66.59 Other injury of intrinsic muscle, fascia and tendon of other and unspecified finger at wrist and hand level (principal); X58.XXXA Exposure to other specified factors, initial encounter
CPT/HCPCS: 73130

== ENCOUNTER → 2022-01-17 14:55 | Outpatient (BNVA) | payer MEDICAID, SELFPAY | PROVIDERS: PCP Family Medicine; Visit Provider Specialist | DX: S69.91XA Unspecified injury of right wrist, hand and finger(s), initial encounter (principal); S60.011A Contusion of right thumb without damage to nail, initial encounter; M20.011 Mallet finger of right finger(s); X58.XXXA Exposure to other specified factors, initial encounter; M19.041 Primary osteoarthritis, right hand; M19.042 Primary osteoarthritis, left hand | CPT/HCPCS: 36415; 73130; 80053; 85651; 86140; 86200; 86225; 86235; 86431 ==

== ENCOUNTER 2022-04-26 16:43 | Inpatient (IN) | payer MEDICAID, SELFPAY ==
[2022-04-26 16:59] VITALS: BP 138/85; PULSE 113; RESP 18; O2SAT 95; BMI 24.4
--- NOTE | 2022-04-26 17:42 | W.ED.PSYCHS ---
HPI - Psych General: Chief Complaint: Psychiatric Symptoms Stated Complaint: ETOH/ SI Time Seen by Provider: 04/26/22 17:01 History of Present Illness: Patient is a 51-year-old male who comes to the ED with SI. Patient also endorses being a heavy alcohol drinker. The past couple days he has been having increased anxiety and depression. He has been sleeping more as well. He is having increased thoughts of suicide but does not have a plan. He stated several times that would like to end his life and that the world would be better without him here. He says he is tired of dealing with all the stress. Associated symptoms: Reports depression and suicidal ideation Review of Systems Const: Denies: fever(s), chills or fatigue Eyes: Denies: change in vision or eye discomfort ENMT: Denies: throat pain, odynophagia, nasal discharge or nasal congestion Card: Denies: chest pain, palpitations, edema, swelling of feet/ankles, dyspnea on exertion or orthopnea Resp: Denies: dyspnea, productive cough or non-productive cough GI: Denies: abdominal pain, nausea, vomiting, diarrhea, constipation or hematochezia : Denies: flank pain, difficulty urinating, dysuria or hematuria Musc: Denies: neck pain, back pain or extremity swelling Skin/Breast: Denies: rash or new lesions Neuro: Denies: headache(s), numbness in extremities or weakness in extremities Psych: Reports: anxiety, depression and suicidal ideation [facility] ED PFSH: Medical History (Updated 04/27/22 @ 12:10 by ALFREDO Villafana) Bipolar disorder Erectile dysfunction H/O fracture of femur Hesitancy Lower urinary tract symptoms (LUTS) Psychiatric care Stress and adjustment reaction Surgical History H/O inguinal hernia repair LEFT Family History Mother , IN HER 70'S Heart attack Diabetes Father , at age 83 Diabetes Heart disease COVID-19 Social History Smoking and tobacco status: current every day smoker cigarettes Years cigarettes smoked: 38 Quit status (tobacco): considering quitting Second hand smoke exposure: Yes Alcohol intake: current Alcohol intake frequency: holidays/special occasions only Alcohol type: beer Desire information about alcohol rehabilitation?: No Marital status: Current occupational status: employed 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 History of recent travel: No Physical Exam Const: COMMON NORMALS: patient oriented x3 and alert GENERAL APPEARANCE: cooperative and odor of alcohol detected HENMT: COMMON NORMALS: normocephalic HEAD & SCALP: normocephalic MOUTH: Normal oral and palatal mucosa present THROAT: posterior oropharynx normal and uvula midline Neck/C-Spine: COMMON NORMALS: supple GENERAL: Yes normal visual inspection Resp: COMMON NORMALS: normal respiratory effort, No retractions, No use of accessory muscles and clear to auscultation bilaterally AUSCULTATION: clear to auscultation bilaterally Cardio: COMMON NORMALS: regular rate, regular rhythm, S1 normal heart sound present, S2 normal heart sound present, No gallops present (Cardio), No clicks present (Cardio), No murmurs present (Cardio) and Peripheral pulses 2+ throughout RATE: regular rate RHYTHM: regular rhythm HEART SOUNDS: S1 normal heart sound present and S2 normal heart sound present PERIPHERAL PULSES: Peripheral pulses 2+ throughout GI: COMMON NORMALS: Normal to inspection, nondistended, normoactive bowel sounds present, Soft to palpation, non-tender and no masses PALPATION: Yes Soft to palpation : COMMON NORMALS: Yes no CVA tenderness BLADDER/KIDNEY EXAM: Yes no CVA tenderness Back/Pelvis: COMMON NORMALS: no CVA tenderness Extremity: COMMON NORMALS: normal to inspection Neuro: COMMON NORMALS: patient oriented x3 SENSORIUM/ORIENTATION: Yes alert GAIT: Yes Normal gait present Skin: GENERAL SKIN EXAM: dry skin Course Vital Signs: Vital signs: Vital Signs Temperature 98.6 F 04/26/22 22:45 Pulse Rate 99 04/26/22 22:45 Respiratory Rate 17 04/26/22 22:45 Blood Pressure 131/77 04/26/22 22:45 Pulse Oximetry 96 04/26/22 22:45 Oxygen Delivery Me thod 04/26/22 22:45 MDM - Psych Medical Decision Making Patient is a 51-year-old male comes to the ED with SI. He is cooperative here on the unit but does have the odor of alcohol and admits to drinking alcohol today. All prescreening labs performed and urine drug screen was negative. Patient's blood alcohol level was 386. I contacted Dr. Cruz and told about patient case. He excepted admission of patient to the NPU, but wanted us to do another blood alcohol level on patient to make sure it is trending down before placing admitting orders. Lab Data I reviewed the patient's lab results. 04/26/22 17:38 04/26/22 17:38 Laboratory Results WBC 6.2 10^3/uL (4.0-10.0) 04/26/22 17:38 RBC 4.09 10^6/uL (4.1-5.3) L 04/26/22 17:38 Hgb 13.6 g/dL (11.7-16.6) 04/26/22 17:38 Hct 40.5 % (42.0-52.0) L 04/26/22 17:38 MCV 99.0 fl (80-94) H 04/26/22 17:38 MCH 33.3 pg (28.0-34.0) 04/26/22 17:38 MCHC 33.6 g/dL (30.0-36.0) 04/26/22 17:38 RDW 13.2 % (12.1-15.1) 04/26/22 17:38 Plt Count 94 10^3/cmm (130-400) L 04/26/22 17:38 MPV 11.3 fL (7.4-10.4) H 04/26/22 17:38 Neut % (Auto) 46.2 % 04/26/22 17:38 Lymph % (Auto) 42.4 % 04/26/22 17:38 [place] % (Auto) 9.2 % 04/26/22 17:38 Eos % (Auto) 1.4 % 04/26/22 17:38 Baso % (Auto) 0.6 % 04/26/22 17:38 Neut # (Auto) 2.87 10^3/uL (1.8-7.7) 04/26/22 17:38 Lymph # (Auto) 2.6 10^3/uL (0.8-4.8) 04/26/22 17:38 [place] # (Auto) 0.6 10^3/uL (0.2-0.9) 04/26/22 17:38 Eos # (Auto) 0.1 10^3/uL (0.0-0.8) 04/26/22 17:38 Baso # (Auto) 0.0 10^3/uL (0.0-0.1) 04/26/22 17:38 Nucleated RBC % (auto) 0 % 04/26/22 17:38 Nucleated RBCs # 0.0 /100WBC 04/26/22 17:38 Sodium 139 mmol/L (136-145) 04/26/22 17:38 Potassium 3.4 mmol/L (3.5-5.1) L 04/26/22 17:38 Chloride 99 mmol/L (98-107) 04/26/22 17:38 Carbon Dioxide 28 mmol/L (22-29) 04/26/22 17:38 Anion Gap 15.4 (5-19) 04/26/22 17:38 BUN 16 mg/dL (6-20) 04/26/22 17:38 Creatinine 0.7 mg/dL (0.7-1.2) 04/26/22 17:38 GFR Calculation 119.4 mL/min (90-130) 04/26/22 17:38 Glucose 113 mg/dL (65-115) 04/26/22 17:38 Calculated Osmolality 290 mOsm/kg (285-295) 04/26/22 17:38 Calcium 9.8 mg/dL (8.5-10.5) 04/26/22 17:38 Total Bilirubin 0.4 mg/dL (0.15-1.2) 04/26/22 17:38 AST 91 U/L (0-40) H 04/26/22 17:38 ALT 45 U/L (0-41) H 04/26/22 17:38 Alkaline Phosphatase 109 U/L (40-130) 04/26/22 17:38 Total Protein 7.1 g/dL (6.6-8.7) 04/26/22 17:38 Albumin 4.3 g/dL (3.5-5.2) 04/26/22 17:38 Globulin 2.8 g/dL (1.3-4.6) 04/26/22 17:38 Urine Color Yellow (Yellow) 04/26/22 17:58 Urine Appearance Clear (CLEAR) 04/26/22 17:58 Urine pH 6 (5-7) 04/26/22 17:58 Ur Specific [place] 1.010 (1.005-1.030) 04/26/22 17:58 Urine Protein Neg (Negative) 04/26/22 17:58 Urine Glucose (UA) Norm (Normal) 04/26/22 17:58 Urine Ketones Negative (Negative) 04/26/22 17:58 Urine Blood Neg (Negative) 04/26/22 17:58 Urine Nitrate Negative (Negative) 04/26/22 17:58 Urine Bilirubin Neg (Negative) 04/26/22 17:58 Urine Urobilinogen Neg mg/dL (Negative) 04/26/22 17:58 Ur Leukocyte Esterase Negative (Negative) 04/26/22 17:58 Salicylates < 0.3 mg/dL (3-10) L 04/26/22 17:38 Urine Opiates Screen Negative ng/mL (Negative) 04/26/22 17:58 Acetaminophen < 5.0 ug/mL (10-30) L 04/26/22 17:38 Ur Barbiturates Screen Negative ng/mL (Negative) 04/26/22 17:58 Ur Phencyclidine Scrn Negative ng/mL (Negative) 04/26/22 17:58 Ur Amphetamines Screen Negative ng/mL (Negative) 04/26/22 17:58 U Benzodiazepines Scrn Negative ng/mL (Negative) 04/26/22 17:58 Urine Cocaine Screen Negative ng/mL (Negative) 04/26/22 17:58 U Marijuana (THC) Screen Negative ng/mL (Negative) 04/26/22 17:58 Ethyl Alcohol 249 mg/dL (0-10) H 04/26/22 21:44 Discharge Plan Discharge Patient Disposition: Admitted As Inpatient Admit Provider: Jeremy Cruz Clinical Impression: Suicidal ideation Condition: Stable Coding Level of Care Code ED Cyan[employer] Furn[employer] for [employer] Fwd Exam Comprehensive
[2022-04-26 17:46] LABS: Basophils % 0.6 %; Eosinophils # 0.1 10^3/uL (0.0-0.8); Eosinophils % 1.4 %; Hematocrit 40.5 % (42.0-52.0); Hemoglobin 13.6 g/dL (11.7-16.6); Lymphocytes # 2.6 10^3/uL (0.8-4.8); Lymphocytes % 42.4 %; Mean Corpuscular HGB Conc 33.6 g/dL (30.0-36.0); Mean Corpuscular Hemoglobin 33.3 pg (28.0-34.0); Mean Platelet Volume 11.3 fL (7.4-10.4); Monocytes # 0.6 10^3/uL (0.2-0.9); Monocytes % 9.2 %; Neutrophils # 2.87 10^3/uL (1.8-7.7); Neutrophils % 46.2 %; Nucleated Red Blood Cells % 0 %; Platelet Count 94 10^3/cmm (130-400); Red Blood Count 4.09 10^6/uL (4.1-5.3); Red Cell Distribution Width 13.2 % (12.1-15.1); White Blood Count 6.2 10^3/uL (4.0-10.0)
[2022-04-26] MEDS: ondansetron 2 mg/ML SDV 2 mL 4 MG IVP (17:49)
[2022-04-26] MEDS: sodium chloride 0.9% 1,000 ML 999 ML IV (17:50)
[2022-04-26 18:09] LABS: Add Urine Microscopic? NO; Charge for UA Resulting for Rev
[2022-04-26 18:12] LABS: Alanine Aminotransferase 45 U/L (0-41); Albumin Level 4.3 g/dL (3.5-5.2); Alkaline Phosphatase 109 U/L (40-130); Anion Gap 15.4 (5-19); Aspartate Amino Transferase 91 U/L (0-40); Blood Urea Nitrogen 16 mg/dL (6-20); Calcium 9.8 mg/dL (8.5-10.5); Carbon Dioxide 28 mmol/L (22-29); Chloride 99 mmol/L (98-107); Globulin 2.8 g/dL (1.3-4.6); Glomerular Filtration Rate 119.4 mL/min (90-130); Glucose 113 mg/dL (65-115); Osmolality Calculated 290 mOsm/kg (285-295); Potassium 3.4 mmol/L (3.5-5.1); Sodium 139 mmol/L (136-145); Total Bilirubin 0.4 mg/dL (0.15-1.2); Total Protein 7.1 g/dL (6.6-8.7)
[2022-04-26 18:14] LABS: Acetaminophen < 5.0 ug/mL (10-30); Salicylate < 0.3 mg/dL (3-10)
[2022-04-26 18:15] LABS: Alcohol Level 386 mg/dL (0-10)
[2022-04-26 18:19] VITALS: BP 119/79; PULSE 93; RESP 15; O2SAT 94
[2022-04-26 18:21] LABS: Bilirubin Urine Neg (Negative); Blood Urine Neg (Negative); Glucose Urine UA Norm (Normal); Ketones Urine Negative (Negative); Leukocyte Esterase Urine Negative (Negative); Nitrate Urine Negative (Negative); Protein Urine Neg (Negative); Urine Appearance Clear (CLEAR); Urine Color Yellow (Yellow); Urobilinogen Urine Neg (Negative); pH Urine 6 (5-7)
[2022-04-26 18:28] LABS: Amphetamines Screen Urine Negative (Negative); Barbiturates Screen Urine Negative (Negative); Benzodiazepines Screen Urine Negative (Negative); Cocaine Screen Urine Negative (Negative); Opiate Screen Urine Negative (Negative); PCP Screen Urine Negative (Negative); THC Screen Urine Negative (Negative)
[2022-04-26 19:34] VITALS: BP 131/79; PULSE 94; RESP 14; TEMP 36.7; O2SAT 97
[2022-04-26 20:13] LABS: Alcohol Level 306 mg/dL (0-10)
[2022-04-26 21:48] VITALS: BP 120/75; PULSE 82; RESP 16; O2SAT 94
[2022-04-26 22:11] LABS: Alcohol Level 249 mg/dL (0-10)
[2022-04-26 22:45] VITALS: BP 131/77; PULSE 99; RESP 17; TEMP 37; O2SAT 96
[2022-04-26] MEDS: hyDROXYzine 25 mg Capsule 50 MG PO (23:22)
[2022-04-26] MEDS: trazodone 50 mg Tablet PO (23:22)
--- NOTE | 2022-04-27 02:45 | PC.NURSE ---
At 2047 Notice of rights of involuntary patient read by patient. All questions answered. Patient gave verbal confirmation of understanding. Security, in room to witness.
[2022-04-27] MEDS: thiamine 100 mg Tablet PO (09:30)
[2022-04-27] MEDS: hydroCHLOROthiazide 25 mg Tablet 12.5 MG PO (09:31)
[2022-04-27] MEDS: folic acid 1 mg Tablet PO (09:31)
[2022-04-27] MEDS: escitalopram 10 mg Tablet 20 MG PO (09:31)
[2022-04-27] MEDS: multivitamin therapeutic Tablet 1 TAB PO (09:31)
[2022-04-27 14:00] VITALS: BP 126/86; PULSE 109; RESP 20; TEMP 36.8; O2SAT 98
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
[2022-04-27] MEDS: nicotine 2 mg Gum BUCCAL ×2 (15:07→21:41)
[2022-04-27 19:53] VITALS: BP 156/93; PULSE 84; RESP 16; TEMP 37.1; O2SAT 98
[2022-04-27] MEDS: quetiapine 100 mg Tablet 200 MG PO (20:23)
[2022-04-27] MEDS: tamsulosin 0.4 mg Capsule PO (20:24)
[2022-04-28] MEDS: hydroCHLOROthiazide 25 mg Tablet 12.5 MG PO (08:37)
[2022-04-28] MEDS: multivitamin therapeutic Tablet 1 TAB PO (08:37)
[2022-04-28] MEDS: thiamine 100 mg Tablet PO (08:37)
[2022-04-28] MEDS: escitalopram 10 mg Tablet 20 MG PO (08:37)
[2022-04-28] MEDS: folic acid 1 mg Tablet PO (08:37)
[2022-04-28] MEDS: nicotine 2 mg Gum BUCCAL ×3 (08:51→21:08)
[2022-04-28 14:00] VITALS: BP 134/83; PULSE 83; RESP 18; O2SAT 98
--- NOTE | 2022-04-28 17:00 | W.PM.NPUPNS ---
Subjective NPU Subjective: Patient presented today reporting that things are going fine. He has some significant psychosocial issues he needs to manage including a court date he has on Saturday and another legal issue on Saturday. He reports that he is not feeling any depression or desires to hurt himself or anyone else. He will continue at [facility] and we discussed the likelihood of discharge tomorrow. Mental Status Exam MSE Comments: This is a slender white male in hospital scrubs with limited grooming but adequate eye contact. No abnormal movements except for mild psychomotor retardation. Cooperative with exam in no acute distress. Speech was slightly decreased rate and normal volume. Mood described as good, affect is congruent. Thought process, organized. Thought content: patient denies suicidal or homicidal ideation, no delusions reported or noted and denies any auditory or visual hallucinations. Attention and concentration are intact and memory appeared reliable but none were formally tested. He is alert and oriented times three. Insight and judgment are fair. Impulse control is limited. Vitals/I&O/Wt Last Vital Signs Temp 98.8 F 04/28/22 19:51 Pulse 78 04/28/22 19:51 Resp 17 04/28/22 19:51 BP 122/73 04/28/22 19:51 Pulse Ox 98 04/28/22 19:51 O2 Del Method 04/27/22 19:53 Weight last 48 hrs Weight 78.834 kg Data NPU 04/26/22 17:38 04/26/22 17:38 A&P Assessment and plan (1) Suicidal ideation: (2) Stress and adjustment reaction: (3) Anxiety disorder: (4) Major depressive disorder: Qualifiers: Major depression recurrence: recurrent Active/Remission status: currently active Major depression episode severity: severe Psychotic features: without psychotic features Qualified Code(s): F33.2 - Major depressive disorder, recurrent severe without psychotic features Plan This is a 51 year old white man with a recent history of depression, partner relational problems and genetic loading for mental health and addiction issues who presents reporting breakthrough symptoms of depression on his current medications and open to changes in those medications at this time. 1. Continue current medications 2. Encourage individual, group and milieu therapy 3. Continue q-15 minute check for safety 4. Recommend sober living treatment at the highest level of care to which the patient is willing to commit. Involuntary Hold Information 96 Hour Hold: 96 Hour Involuntary Admission: Yes 96 Hour Hold Ending Date: 05/02/22 96 Hour Hold Ending Time: 20:20 Attestations NPU Medical Necessity Statement*: Inpatient hospitalization is medically necessary and the clinically appropriate intervention at this time. We will monitor medications and make changes as indicated. Likely length of stay is 1-3 days. Likely starting Saturday. Coding Level of Care Code Acute Code for [facility] Fwd Diagnoses Suicidal ideation R45.851 Stress and adjustment reaction F43.29 Anxiety disorder F41.9 Major depressive disorder F33.2 Major depression recurrence: recurrent Active/Remission status: currently active Major depression episode severity: severe Psychotic features: without psychotic features
[2022-04-28 19:51] VITALS: BP 122/73; PULSE 78; RESP 17; TEMP 37.1; O2SAT 98
[2022-04-28] MEDS: quetiapine 100 mg Tablet 200 MG PO (21:07)
[2022-04-28] MEDS: tamsulosin 0.4 mg Capsule PO (21:08)
[2022-04-28] MEDS: hyDROXYzine 25 mg Capsule 50 MG PO (21:08)
[2022-04-28] MEDS: trazodone 50 mg Tablet PO (21:08)
[2022-04-29] MEDS: folic acid 1 mg Tablet PO (07:44)
[2022-04-29] MEDS: escitalopram 10 mg Tablet 20 MG PO (07:44)
[2022-04-29] MEDS: multivitamin therapeutic Tablet 1 TAB PO (07:45)
[2022-04-29] MEDS: hydroCHLOROthiazide 25 mg Tablet 12.5 MG PO (07:45)
[2022-04-29] MEDS: thiamine 100 mg Tablet PO (07:46)
[2022-04-29] MEDS: nicotine 2 mg Gum BUCCAL ×2 (07:46→11:04)
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
[2022-04-29 13:39] VITALS: BP 122/73; PULSE 78; RESP 17; TEMP 37.1; O2SAT 98
[2022-04-29 14:00] VITALS: BP 129/80; PULSE 97; RESP 17; TEMP 36.4; O2SAT 99
--- NOTE | 2022-04-29 14:01 | PC.NURSE ---
discharge paperwork discussed with patient. pt denied any questions at this time.pt states understanding and compliance.
== END 2022-04-29 15:04 | disposition home or self-care (01) | DRG 882 ==
LOC: ER 18:19 → NP 04-27 06:29
PROVIDERS: Emergency Medicine; Admitting Provider Psychiatry & Neurology Psychiatry; Emergency Provider Physician Assistant; PCP Family Medicine; Visit Provider Psychiatry & Neurology Psychiatry
DX: F43.20 Adjustment disorder, unspecified (principal); R45.851 Suicidal ideations; F33.2 Major depressive disorder, recurrent severe without psychotic features; F10.10 Alcohol abuse, uncomplicated; F10.129 Alcohol abuse with intoxication, unspecified; Y90.8 Blood alcohol level of 240 mg/100 ml or more
CPT/HCPCS: 36415; 80053; 80306; 80307; 81003; 85025; 96361; 96374; 96375; 97150; 97165; 99238; 99285; J2405; J3411; J7030